=== PATIENT | male | born 1965 | race Caucasian/White ===

== ENCOUNTER 2019-12-10 06:03 | Inpatient (IN) | payer MEDICAID ==
[2019-12-10] MEDS ORDERED: Albuterol 0.083% 2.5 MG/3 ML Neb Soln NEB ONE ×2 (06:06→06:40)
[2019-12-10] MEDS ORDERED: Sodium Chloride 0.9% 10 ML Syringe FLUSH PRN ×2 (06:11→10:37)
[2019-12-10] MEDS ORDERED: methylPREDNISolone Sodium Succinate 125 MG/2 ML SDV IVPUSH ONE (06:12)
--- NOTE | 2019-12-10 06:17 | EDM.PDOC ---
ED HPI GENERAL MEDICAL PROBLEM - General Chief Complaint: Respiratory Problem Stated Complaint: [facility] Time Seen by Provider: 12/10/19 06:05 Source of Information: Reports: Patient, EMS History Limitations: Reports: Other (no old records) - History of Present Illness INITIAL COMMENTS - FREE TEXT/NARRATIVE: 54 yo male smoker is transported this morning to the ER via EMS for SOB/wheezing. A Duoneb and BiPAP was used per EMS en route with some benefit. Comes from the [facility]. Has no provider. No fever. Has been hospitalized in the past for his breathing in [place], [place]. Has had MDI inhalers in the past, but is out of them. Onset: Gradual Onset Date: 12/08/19 Duration: Day(s): (2), Getting Worse Location: Reports: Chest Quality: Reports: Other (no pain) Severity: Severe Improves with: Reports: Medication Worsens with: Reports: Other (time/smoking) Context: Reports: Other (See HPI) Associated Symptoms: Reports: Shortness of Breath. 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) (Duoneb/BiPAP) - Related Data Allergies Allergy/AdvReac Type Severity Reaction Status Date / Time No Known Allergies Allergy Verified 12/10/19 06:14 Home Meds: Home Meds Albuterol [Ventolin HFA] 1 - 2 puff .XX Q4H PRN 12/10/19 [History] ED ROS GENERAL - Review of Systems Review Of Systems: See Below Constitutional: Reports: No Symptoms HEENT: Reports: No Symptoms Respiratory: Reports: Shortness of Breath, Wheezing Cardiovascular: Reports: No Symptoms GI/Abdominal: Reports: No Symptoms : Reports: No Symptoms Musculoskeletal: Reports: No Symptoms Skin: Reports: No Symptoms Neurological: Reports: No Symptoms ED EXAM, GENERAL - Physical Exam Exam: See Below Exam Limited By: No Limitations General Appearance: Alert, WD/WN, Mild Distress Eye Exam: Bilateral Eye: Normal Inspection Ears: Normal External Exam, Normal Canal, Hearing Grossly Normal Ear Exam: Bilateral Ear: Auricle Normal, Canal Normal Nose: Normal Inspection, No Blood Throat/Mouth: Normal Inspection, Normal Lips, Normal Oropharynx, Normal Voice, No Airway Compromise Head: Atraumatic, Normocephalic Neck: Normal Inspection Respiratory/Chest: Respiratory Distress, Decreased Breath Sounds, Wheezing, Retractions. No: No Respiratory Distress, Lungs Clear, Normal Breath Sounds, No Accessory Muscle Use, Rales, Rhonchi Cardiovascular: Regular Rate, Rhythm, No Edema GI/Abdominal: Normal Bowel Sounds, Soft, Non-Tender, No Distention Back Exam: Normal Inspection. No: CVA Tenderness (R), CVA Tenderness (L) Extremities: Normal Inspection, Normal Range of Motion, Non-Tender, No Pedal Edema. No: Pedal Edema Neurological: Alert, Oriented, CN II-XII Intact, Normal Cognition, No Motor/ Sensory Deficits Psychiatric: Normal Affect, Normal Mood Skin Exam: Warm, Dry, Intact, Normal Color, No Rash Course - Vital Signs Text/Narrative:: Dr. Patino called @ 0702h Last Recorded V/S: Last Vital Signs Temp 36.5 C 12/10/19 10:37 Pulse 84 12/10/19 16:00 Resp 20 12/10/19 16:00 BP 127/73 12/10/19 16:00 Pulse Ox 99 12/10/19 16:00 - Orders/Labs/Meds Orders: Medication Orders Acetaminophen (Tylenol) 650 mg PO Q4H PRN PRN Reason: Pain (Mild 1-3)/fever Albuterol (Proventil Neb Soln) 2.5 mg NEB Q2H PRN PRN Reason: Shortness Of Breath/wheezing Albuterol/Ipratropium (Duoneb 3.0-0.5 Mg/3 Ml) 3 ml NEB QIDRT [facility] Last Admin: 12/10/19 14:46 Dose: 3 ml Documented by: Admin: 12/10/19 10:51 Dose: 3 ml Documented by: PAYAL Enoxaparin Sodium (Lovenox) 40 mg SUBCUT Q24H [facility] Last Admin: 12/10/19 11:27 Dose: 40 mg Documented by: DARRIN Sodium Chloride (Normal Saline) 1,000 mls @ 125 mls/hr IV ASDIRECTED [facility] Last Admin: 12/10/19 10:44 Dose: 125 mls/hr Documented by: DARRIN Methylprednisolone Sodium Succinate (Solu-Medrol) 40 mg IVPUSH Q6H [facility] Last Admin: 12/10/19 17:48 Dose: 40 mg Documented by: Admin: 12/10/19 11:30 Dose: 40 mg Documented by: DARRIN Nicotine (Habitrol) 21 mg TRDERM DAILY [facility] Last Admin: 12/10/19 11:28 Dose: 21 mg Documented by: DARRIN Nicotine Polacrilex (Nicorelief) 2 mg CHEW Q1H PRN PRN Reason: Other Ondansetron HCl (Zofran) 4 mg IV Q4H PRN PRN Reason: Nausea/Vomiting Polyethylene Glycol (Miralax) 17 gm PO DAILY PRN PRN Reason: Constipation Sodium Chloride (Saline Flush) 10 ml FLUSH ASDIRECTED PRN PRN Reason: Keep Vein Open Labs: Laboratory Tests 12/10/19 12/10/19 12/10/19 Range/Units 06:10 06:10 06:10 WBC 14.4 H (4.5-11.0) K/uL RBC 4.99 (4.30-5.90) M/uL Hgb 15.2 H (12.0-15.0) g/dL Hct 46.4 (40.0-54.0) % MCV 93 (80-98) fL MCH 31 (27-31) pg MCHC 33 (32-36) % Plt Count 383 (150-400) K/uL Puncture Site R brachial ABG pH 7.341 L (7.350-7.450) ABG pCO2 42.9 H (35.0-42.0) mmHg ABG pO2 141.0 H (75.0-100.0) mmHg ABG HCO3 22.5 (22.0-26.0) mmol/L ABG Total CO2 19.6 L (23.0-27.0) mmol/L ABG O2 Saturation 98.4 H (95.0-98.0) % ABG O2 Content 21.8 (15.0-23.0) %vol ABG Base Excess -2.7 mm/L ABG Hemoglobin 15.9 (13.5-18.0) g/dL ABG Oxyhemoglobin 96.9 % ABG Carboxyhemoglobin 0.8 (0.0-1.6) % ABG Methemoglobin 0.7 % O2 Delivery Device Bipap Oxygen Flow Rate 8.0 L Sodium 139 L (140-148) mmol/L Potassium 4.5 (3.6-5.2) mmol/L Chloride 105 (100-108) mmol/L Carbon Dioxide 24 (21-32) mmol/L Anion Gap 14.5 H (5.0-14.0) mmol/L BUN 13 (7-18) mg/dL Creatinine 0.9 (0.8-1.3) mg/dL Est Cr Clr Drug Dosing 90.13 mL/min Estimated GFR (MDRD) > 60 (>60) Glucose 126 H (74-106) mg/dL Calcium 9.0 (8.5-10.1) mg/dL Meds: Medications Generic Name Dose Route Start Last Admin Trade Name Freq PRN Reason Stop Dose Admin Acetaminophen 650 mg 12/10/19 10:37 Tylenol PO Q4H PRN Pain (Mild 1-3)/fever Albuterol 2.5 mg 12/10/19 10:37 Proventil Neb Soln NEB Q2H PRN Shortness Of Breath/wheezing Albuterol/Ipratropium 3 ml 12/10/19 11:00 12/10/19 14:46 Duoneb 3.0-0.5 Mg/3 Ml NEB 3 ml QIDRT [facility] Administration Enoxaparin Sodium 40 mg 12/10/19 12:00 12/10/19 11:27 Lovenox SUBCUT 40 mg Q24H [facility] Administration Sodium Chloride 1,000 mls @ 125 mls/hr 12/10/19 10:37 12/10/19 10:44 Normal Saline IV 125 mls/hr ASDIRECTED [facility] Administration Methylprednisolone Sodium Succinate 40 mg 12/10/19 12:00 12/10/19 17:48 Solu-Medrol IVPUSH 40 mg Q6H [facility] Administration Nicotine 21 mg 12/10/19 11:00 12/10/19 11:28 Habitrol TRDERM 21 mg DAILY [facility] Administration Nicotine Polacrilex 2 mg 12/10/19 10:37 Nicorelief CHEW Q1H PRN Other Ondansetron HCl 4 mg 12/10/19 10:37 Zofran IV Q4H PRN Nausea/Vomiting Polyethylene Glycol 17 gm 12/10/19 10:37 Miralax PO DAILY PRN Constipation Sodium Chloride 10 ml 12/10/19 10:37 Saline Flush FLUSH ASDIRECTED PRN Keep Vein Open Discontinued Medications Generic Name Dose Route Start Last Admin Trade Name Freq PRN Reason Stop Dose Admin Albuterol 2.5 mg 06/22/20 06:06 12/10/19 06:13 Proventil Neb Soln NEB 12/10/19 06:07 2.5 mg ONETIME ONE Administration Albuterol 2.5 mg 12/10/19 06:40 12/10/19 06:44 Proventil Neb Soln NEB 12/10/19 06:41 2.5 mg ONETIME ONE Administration Methylprednisolone Sodium Succinate 125 mg 12/10/19 06:12 12/10/19 06:16 Solu-Medrol IVPUSH 12/10/19 06:13 125 mg ONETIME ONE Administration Sodium Chloride 10 ml 12/10/19 06:11 12/10/19 06:16 Saline Flush FLUSH 10 ml ASDIRECTED PRN Administration Keep Vein Open - Radiology Interpretation Free Text/Narrative:: CXR-emphysema Departure - Departure Time of Disposition: 08:00 Disposition: Admitted As Inpatient 67 Condition: Fair Clinical Impression: Bronchospasm Emphysema lung Qualifiers: Emphysema type: unspecified Qualified Code(s): J43.9 - Emphysema, unspecified - Discharge Information *PRESCRIPTION DRUG MONITORING PROGRAM REVIEWED*: Not Applicable *COPY OF PRESCRIPTION DRUG MONITORING REPORT IN PATIENT LUCERO: Not Applicable Sepsis Event Note (ED) - Focused Exam Vital Signs: Vital Signs Temp Pulse Resp BP Pulse Ox 12/10/19 09:30 64 20 134/89 98 12/10/19 07:30 87 22 H 135/95 H 99 12/10/19 06:28 58 L 24 H 160/103 H 100 12/10/19 06:04 35.5 C L 75 21 H 157/96 H 100
--- NOTE | 2019-12-10 09:32 | CR ---
CHEST: Portable 12/10/2019 at 634 CLINICAL HISTORY:SOB COMPARISON:None FINDINGS: The lungs are emphysematous. The heart size, pulmonary vascularity and hilar structures are normal. No infiltrate effusion or pneumothorax is seen. IMPRESSION: No acute cardiopulmonary process. The Glass changes
--- NOTE | 2019-12-10 10:10 | PCM.HP.2 ---
H&P History of Present Illness - General Date of Service: 12/10/19 Admit Problem/Dx: Admission Diagnosis/Problem Admission Diagnosis/Problem COPD, Severe chronic obstructive pulmonary disease Source of Information: Patient, Provider, RN Notes Reviewed History Limitations: Reports: No Limitations - History of Present Illness Initial Comments - Free Text/Narative: Mr. Sahu is a 54-year-old gentleman who was admitted through the emergency department with shortness of breath and hypoxia secondary to COPD exacerbation. He reports that he has had a lifelong history of asthma and does use an inhaler intermittently. He has a [id number]-ybio smoking history and smoked up until the day prior to admission. He does find that he has to pace himself somewhat as far as physical activity because of shortness of breath, but is fairly physically active working as a [employer]. He does not use home oxygen. He felt well until 2 days ago and over the past 36 hours has developed progressive shortness of breath. He presented to the emergency department early this morning with increased respiratory rate and hypoxia. He has received nebulizer therapy and is feeling somewhat improved, adequate oxygenation on 1 L of oxygen via nasal cannula. He denies any fevers chills sweats or productive cough. - Related Data Allergies/Adverse Reactions: Allergies Allergy/AdvReac Type Severity Reaction Status Date / Time No Known Allergies Allergy Verified 12/10/19 06:14 Home Medications: Home Meds Albuterol [Ventolin HFA] 1 - 2 puff .XX Q4H PRN 12/10/19 [History] Past Medical History Respiratory History: Reports: Asthma - Past Surgical History GI Surgical History: Reports: Hernia, Inguinal Social & Family History - Tobacco Use Smoking Status *Q: Current Every Day Smoker Years of Tobacco use: 27 Packs/Tins Daily: 1 - Recreational Drug Use Recreational Drug Use: No H&P Review of Systems - Review of Systems: Review Of Systems: See Below General: Reports: No Symptoms HEENT: Reports: No Symptoms Pulmonary: Reports: Shortness of Breath, Wheezing. Denies: Pleuritic Chest Pain, Cough, Sputum, Hemoptysis Cardiovascular: Reports: Dyspnea on Exertion. Denies: Chest Pain, Palpitations, Orthopnea, PND, Edema, Lightheadedness Gastrointestinal: Reports: No Symptoms Genitourinary: Reports: No Symptoms Musculoskeletal: Reports: No Symptoms Skin: Reports: No Symptoms Psychiatric: Reports: No Symptoms Neurological: Reports: No Symptoms Hematologic/Lymphatic: Reports: No Symptoms Immunologic: Reports: No Symptoms Exam - Exam Exam: See Below - Vital Signs Vital Signs: Last Vital Signs Temp 95.9 F L 12/10/19 06:04 Pulse 64 12/10/19 09:30 Resp 20 12/10/19 09:30 BP 134/89 12/10/19 09:30 Pulse Ox 98 12/10/19 09:30 Weight: 148 lb - Exam Quality Assessment: Supplemental Oxygen, DVT Prophylaxis General: Alert, Oriented, Cooperative, Moderate Distress HEENT: Conjunctiva Clear, Hearing Intact, Mucosa Moist & [place], Normal Nasal Septum, Posterior Pharynx Clear, Pupils Equal Neck: Supple, Trachea Midline, +2 Carotid Pulse wo Bruit Lungs: Decreased Breath Sounds, Wheezing. No: Crackles, Rales, Rhonchi Cardiovascular: Regular Rate, Regular Rhythm, Normal S1, Normal S2. No: Systolic Murmur, Diastolic Murmur GI/Abdominal Exam: Soft, Non-Tender, No Organomegaly, No Distention Back Exam: Normal Inspection, Full Range of Motion Extremities: Non-Tender, No Pedal Edema Skin: Warm, Dry, Intact, Other (Lipoma right posterior shoulder) Neurological: Cranial Nerves Intact, Strength Equal Bilateral, Normal Speech, Normal Tone, Sensation Intact. No: Focal Deficit Neuro Extensive - Mental Status: Alert, Oriented x3, Normal Mood/Affect, Normal Cognition, Memory Intact - Patient Data Lab Results Last 24 hrs: Laboratory Results - last 24 hr 12/10/19 12/10/19 12/10/19 Range/Units 06:10 06:10 06:10 WBC 14.4 H (4.5-11.0) K/uL RBC 4.99 (4.30-5.90) M/uL Hgb 15.2 H (12.0-15.0) g/dL Hct 46.4 (40.0-54.0) % MCV 93 (80-98) fL MCH 31 (27-31) pg MCHC 33 (32-36) % Plt Count 383 (150-400) K/uL Puncture Site R brachial ABG pH 7.341 L (7.350-7.450) ABG pCO2 42.9 H (35.0-42.0) mmHg ABG pO2 141.0 H (75.0-100.0) mmHg ABG HCO3 22.5 (22.0-26.0) mmol/L ABG Total CO2 19.6 L (23.0-27.0) mmol/L ABG O2 Saturation 98.4 H (95.0-98.0) % ABG O2 Content 21.8 (15.0-23.0) %vol ABG Base Excess -2.7 mm/L ABG Hemoglobin 15.9 (13.5-18.0) g/dL ABG Oxyhemoglobin 96.9 % ABG Carboxyhemoglobin 0.8 (0.0-1.6) % ABG Methemoglobin 0.7 % O2 Delivery Device Bipap Oxygen Flow Rate 8.0 L Sodium 139 L (140-148) mmol/L Potassium 4.5 (3.6-5.2) mmol/L Chloride 105 (100-108) mmol/L Carbon Dioxide 24 (21-32) mmol/L Anion Gap 14.5 H (5.0-14.0) mmol/L BUN 13 (7-18) mg/dL Creatinine 0.9 (0.8-1.3) mg/dL Est Cr Clr Drug Dosing 90.13 mL/min Estimated GFR (MDRD) > 60 (>60) Glucose 126 H (74-106) mg/dL Calcium 9.0 (8.5-10.1) mg/dL Result Diagrams: 12/10/19 06:10 12/10/19 06:10 Sepsis Event Note - Evaluation Sepsis Screening Result: No Definite Risk - Focused Exam Vital Signs: Vital Signs Temp Pulse Resp BP Pulse Ox 12/10/19 09:30 64 20 134/89 98 12/10/19 07:30 87 22 H 135/95 H 99 12/10/19 06:28 58 L 24 H 160/103 H 100 12/10/19 06:04 95.9 F L 75 21 H 157/96 H 100 Date Exam was Performed: 12/10/19 Time Exam was Performed: 10:03 *Q Meaningful Use (ADM) - VTE Risk Assess *Q Each Risk Factor Represents 1 Point: Age 41 - 59 years, Abnormal Pulmonary Function (COPD) Total Score 1 Point Risk Factors: 2 Each Risk Factor Represents 2 Points: None Total Score 2 Point Risk Factors: 0 Each Risk Factor Represents 3 Points: None Total Score 3 Point Risk Factors: 0 Each Risk Factor Represents 5 Points: None Total Score 5 Point Risk Factors: 0 Venous Thromboembolism Risk Factor Score *Q: 2 Problem List Initiated/Reviewed/Updated: Yes Orders Last 24hrs: Active Orders 24 hr Category Date Time Status Patient Status Manage Transfer [TRANSFER] Routine ADT 12/10/19 09:57 Ordered RT Aerosol Therapy [RC] ASDIRECTED Care 12/10/19 06:06 Active RT Aerosol Therapy [RC] ASDIRECTED Care 12/10/19 06:40 Active Sodium Chloride 0.9% [Saline Flush] Med 12/10/19 06:11 Active 10 ml FLUSH ASDIRECTED PRN Saline Lock Insert [OM.PC] Routine Oth 12/10/19 06:11 Ordered Resuscitation Status Routine Resus Stat 12/10/19 09:59 Ordered Medication Orders Sodium Chloride (Saline Flush) 10 ml FLUSH ASDIRECTED PRN PRN Reason: Keep Vein Open Last Admin: 12/10/19 06:16 Dose: 10 ml Documented by: HALLEY Assessment/Plan Comment:: ASSESSMENT AND PLAN COPD EXACERBATION WITH HYPOXIA-longstanding history of reactive airway disease and 49-[id number]-[id number] smoking history. Shortness of breath over the last 36 hours, no evidence of underlying infection. -Supplemental oxygen as needed -Nebulized albuterol and DuoNebs -Solu-Medrol 40 mg IV every 6 hours -Hold on antibiotic therapy, unless he develops overt evidence of infection. NICOTINE DEPENDENCE -Nicotine patch -Nicotine gum as needed MAINTENANCE ISSUES -DVT prophylaxis; Lovenox 40 mg subcu daily -GI prophylaxis; not indicated -Mont[place] catheter; not indicated -Nutrition; regular diet -Nicotine dependence; nicotine patch and gum CODE STATUS-FULL CODE ADMISSION STATUS-patient will be admitted to inpatient status, expect at least a 2 night hospital stay for evaluation and management of problems as outlined above. At the time of this admission I do not reasonably expected evaluation and management of this problem will require more than a 96 hour hospital stay. DISPOSITION-anticipate discharge to home after the hospital stay. - Mortality Measure Prognosis:: Good
[2019-12-10] MEDS ORDERED: Nicotine Polacrilex 2 MG Gum CHEW PRN (10:37)
[2019-12-10] MEDS ORDERED: Ondansetron 4 MG/2 ML SDV IV PRN (10:37)
[2019-12-10] MEDS ORDERED: Polyethylene Glycol 3350 Powder 17 GM Packet PO PRN (10:37)
[2019-12-10] MEDS: Sodium Chloride 0.9% 1,000 ML IV SCH ×2 (10:44→18:32)
[2019-12-10] MEDS: Albuterol/Ipratropium 3.0-0.5 MG/3 ML Neb Soln NEB SCH ×3 (10:51→20:54)
[2019-12-10] MEDS: Enoxaparin 40 MG/0.4 ML Syringe SUBCUT SCH (11:27)
[2019-12-10] MEDS: Nicotine 21 MG/24 Hr Patch TRDERM SCH (11:28)
[2019-12-10] MEDS: methylPREDNISolone Sodium Succinate 40 MG/1 ML SDV IVPUSH SCH ×2 (11:30→17:48)
[2019-12-11] MEDS: methylPREDNISolone Sodium Succinate 40 MG/1 ML SDV IVPUSH SCH ×4 (00:38→17:09)
[2019-12-11] MEDS: Sodium Chloride 0.9% 1,000 ML IV SCH (02:20)
[2019-12-11] MEDS: Albuterol 0.083% 2.5 MG/3 ML Neb Soln NEB PRN (04:46)
[2019-12-11] MEDS: Albuterol/Ipratropium 3.0-0.5 MG/3 ML Neb Soln NEB SCH ×4 (07:25→20:12)
[2019-12-11] MEDS: Nicotine 21 MG/24 Hr Patch TRDERM SCH (08:56)
--- NOTE | 2019-12-11 10:31 | PCM.PN ---
- General Info Date of Service: 12/11/19 Subjective Update: Mr. Sahu is noted moderate improvement in his shortness of breath since admission. At rest he is much less short of breath and more comfortable. He does desaturate and become short of breath with minimal exertion. He is remained afebrile and hemodynamically stable, no cough or other evidence of underlying infection. Functional Status: Reports: Tolerating Diet, Urinating - Review of Systems General: Reports: No Symptoms Pulmonary: Reports: Shortness of Breath, Wheezing. Denies: Pleuritic Chest Pain, Cough, Sputum, Hemoptysis Cardiovascular: Reports: Dyspnea on Exertion. Denies: Chest Pain, Palpitations, Orthopnea, PND, Edema, Lightheadedness Gastrointestinal: Reports: No Symptoms - Patient Data Vitals - Most Recent: Last Vital Signs Temp 98.2 F 12/11/19 08:00 Pulse 93 12/11/19 10:00 Resp 18 12/11/19 10:00 BP 114/60 12/11/19 10:00 Pulse Ox 92 L 12/11/19 10:00 Weight - Most Recent: 148 lb 0.011 oz I&O - Last 24 Hours: Intake & Output 12/10/19 12/11/19 12/11/19 22:59 06:59 14:59 Intake Total 1269 1348 250 Output Total 450 900 450 Balance 819 448 -200 Med Orders - Current: Current Medications Acetaminophen (Tylenol) 650 mg PO Q4H PRN PRN Reason: Pain (Mild 1-3)/fever Albuterol (Proventil Neb Soln) 2.5 mg NEB Q2H PRN PRN Reason: Shortness Of Breath/wheezing Last Admin: 12/11/19 04:46 Dose: 2.5 mg Documented by: Albuterol/Ipratropium (Duoneb 3.0-0.5 Mg/3 Ml) 3 ml NEB QIDRT [facility] Last Admin: 12/11/19 07:25 Dose: 3 ml Documented by: Enoxaparin Sodium (Lovenox) 40 mg SUBCUT Q24H [facility] Last Admin: 12/10/19 11:27 Dose: 40 mg Documented by: Methylprednisolone Sodium Succinate (Solu-Medrol) 40 mg IVPUSH Q6H [facility] Last Admin: 12/11/19 06:08 Dose: 40 mg Documented by: Nicotine (Habitrol) 21 mg TRDERM DAILY [facility] Last Admin: 12/11/19 08:56 Dose: 21 mg Documented by: Nicotine Polacrilex (Nicorelief) 2 mg CHEW Q1H PRN PRN Reason: Other Ondansetron HCl (Zofran) 4 mg IV Q4H PRN PRN Reason: Nausea/Vomiting Polyethylene Glycol (Miralax) 17 gm PO DAILY PRN PRN Reason: Constipation Sodium Chloride (Saline Flush) 10 ml FLUSH ASDIRECTED PRN PRN Reason: Keep Vein Open Discontinued Medications Albuterol (Proventil Neb Soln) 2.5 mg NEB ONETIME ONE Stop: 12/10/19 06:07 Last Admin: 12/10/19 06:13 Dose: 2.5 mg Documented by: Albuterol (Proventil Neb Soln) 2.5 mg NEB ONETIME ONE Stop: 12/10/19 06:41 Last Admin: 12/10/19 06:44 Dose: 2.5 mg Documented by: Sodium Chloride (Normal Saline) 1,000 mls @ 125 mls/hr IV ASDIRECTED [facility] Last Admin: 12/11/19 02:20 Dose: 125 mls/hr Documented by: Methylprednisolone Sodium Succinate (Solu-Medrol) 125 mg IVPUSH ONETIME ONE Stop: 12/10/19 06:13 Last Admin: 12/10/19 06:16 Dose: 125 mg Documented by: Sodium Chloride (Saline Flush) 10 ml FLUSH ASDIRECTED PRN PRN Reason: Keep Vein Open Last Admin: 12/10/19 06:16 Dose: 10 ml Documented by: - Exam Quality Assessment: DVT Prophylaxis General: Alert, Oriented, Cooperative, Moderate Distress Lungs: Decreased Breath Sounds, Wheezing. No: Crackles, Rales, Rhonchi Cardiovascular: Regular Rate, Regular Rhythm, No Murmurs GI/Abdominal Exam: Soft, Non-Tender, No Organomegaly, No Distention Extremities: Non-Tender, No Pedal Edema Sepsis Event Note - Evaluation Sepsis Screening Result: No Definite Risk - Focused Exam Vital Signs: Vital Signs Temp Pulse Resp BP Pulse Ox Pulse Ox 12/11/19 10:00 93 18 114/60 92 L 12/11/19 08:00 98.2 F 100 20 127/66 94 L 12/11/19 07:25 105 H 95 12/11/19 07:00 96 12/11/19 06:00 81 15 125/63 96 12/11/19 04:00 76 16 112/73 96 12/11/19 02:00 92 16 116/65 91 L 12/11/19 00:00 89 18 125/75 95 Date Exam was Performed: 12/11/19 Time Exam was Performed: 10:29 - Problem List Review Problem List Initiated/Reviewed/Updated: Yes - My Orders Last 24 Hours: My Active Orders 12/10/19 09:59 Resuscitation Status Routine 12/10/19 10:37 Acetaminophen [Tylenol] 650 mg PO Q4H PRN Albuterol [Proventil Neb Soln] 2.5 mg NEB Q2H PRN Nicotine Polacrilex [Nicorelief] 2 mg CHEW Q1H PRN Ondansetron [Zofran] 4 mg IV Q4H PRN Sodium Chloride 0.9% [Saline Flush] 10 ml FLUSH ASDIRECTED PRN polyethylene glycoL 3350 [MiraLAX] 17 gm PO DAILY PRN 12/10/19 10:37 Patient Status [ADT] Routine Ambulate [RC] QID Height and Weight [RC] DAILY Intake and Output [RC] QSHIFT Notify Provider Vital Signs [RC] ASDIRECTED Oxygen Therapy [RC] PRN Peripheral IV Care [RC] Q12H Pulse Oximetry [RC] CONTINUOUS RT Aerosol Therapy [RC] ASDIRECTED Up ad Donya [RC] ASDIRECTED Up to Chair [RC] QID VTE/DVT Education [RC] Per Unit Routine Vital Signs [RC] Q2H Peripheral IV Insertion Adult [OM.PC] Routine 12/10/19 11:00 Albuterol/Ipratropium [DuoNeb 3.0-0.5 MG/3 ML] 3 ml NEB QIDRT Nicotine [Habitrol] 21 mg TRDERM DAILY 12/10/19 12:00 Enoxaparin [Lovenox] 40 mg SUBCUT Q24H methylPREDNISolone Sod Succ [Solu-MEDROL] 40 mg IVPUSH Q6H 12/11/19 10:28 Convert IV to Saline Lock [OM.PC] Routine - Plan Plan:: ASSESSMENT AND PLAN COPD EXACERBATION WITH HYPOXIA-longstanding history of reactive airway disease and 15-dpat-bfmo smoking history. Moderate improvement from admission, still short of breath and hypoxic with activity -Supplemental oxygen as needed -Nebulized albuterol and DuoNebs -Solu-Medrol 40 mg IV every 6 hours -Hold on antibiotic therapy, unless he develops evidence of infection. NICOTINE DEPENDENCE -Nicotine patch -Nicotine gum as needed MAINTENANCE ISSUES -DVT prophylaxis; Lovenox 40 mg subcu daily -GI prophylaxis; not indicated -[place] catheter; not indicated -Nutrition; regular diet -Nicotine dependence; nicotine patch and gum CODE STATUS-FULL CODE ADMISSION STATUS-patient will be admitted to inpatient status, expect at least a 2 night hospital stay for evaluation and management of problems as outlined above. At the time of this admission I do not reasonably expected evaluation and management of this problem will require more than a 96 hour hospital stay. DISPOSITION-anticipate discharge to home after the hospital stay.
[2019-12-11] MEDS: Enoxaparin 40 MG/0.4 ML Syringe SUBCUT SCH (11:32)
[2019-12-12] MEDS: methylPREDNISolone Sodium Succinate 40 MG/1 ML SDV IVPUSH SCH ×4 (01:50→17:27)
[2019-12-12] MEDS: Albuterol 0.083% 2.5 MG/3 ML Neb Soln NEB PRN (05:28)
[2019-12-12] MEDS: Albuterol/Ipratropium 3.0-0.5 MG/3 ML Neb Soln NEB SCH ×4 (07:22→21:14)
[2019-12-12] MEDS: Nicotine 21 MG/24 Hr Patch TRDERM SCH ×2 (09:15→21:25)
--- NOTE | 2019-12-12 12:22 | PCM.PN ---
- General Info Date of Service: 12/12/19 Subjective Update: Mr. Sahu has noted further modest improvement in his shortness of breath over the last 24 hours. Continues to experience a nonproductive cough. Vital signs have remained stable and he has been afebrile. Continues to require supplemental oxygen at 1 L/min via nasal cannula. Functional Status: Reports: Tolerating Diet, Ambulating, Urinating - Review of Systems General: Reports: No Symptoms Pulmonary: Reports: Shortness of Breath, Cough, Wheezing. Denies: Pleuritic Chest Pain, Sputum, Hemoptysis Cardiovascular: Reports: Dyspnea on Exertion. Denies: Chest Pain, Palpitations, Orthopnea, PND, Edema, Lightheadedness Gastrointestinal: Reports: No Symptoms - Patient Data Vitals - Most Recent: Last Vital Signs Temp 97.5 F 12/12/19 11:00 Pulse 90 12/12/19 11:04 Resp 18 12/12/19 11:00 BP 106/52 L 12/12/19 11:00 Pulse Ox 92 L 12/12/19 11:00 Weight - Most Recent: 134 lb 3.2 oz I&O - Last 24 Hours: Intake & Output 12/11/19 12/12/19 12/12/19 22:59 06:59 14:59 Intake Total 240 360 Balance 240 360 Med Orders - Current: Current Medications Acetaminophen (Tylenol) 650 mg PO Q4H PRN PRN Reason: Pain (Mild 1-3)/fever Albuterol (Proventil Neb Soln) 2.5 mg NEB Q2H PRN PRN Reason: Shortness Of Breath/wheezing Last Admin: 12/12/19 05:28 Dose: 2.5 mg Documented by: Albuterol/Ipratropium (Duoneb 3.0-0.5 Mg/3 Ml) 3 ml NEB QIDRT [facility] Last Admin: 12/12/19 11:04 Dose: 3 ml Documented by: Enoxaparin Sodium (Lovenox) 40 mg SUBCUT Q24H [facility] Last Admin: 12/11/19 11:32 Dose: 40 mg Documented by: Methylprednisolone Sodium Succinate (Solu-Medrol) 40 mg IVPUSH Q6H [facility] Last Admin: 12/12/19 05:29 Dose: 40 mg Documented by: Nicotine (Habitrol) 21 mg TRDERM DAILY [facility] Last Admin: 12/12/19 09:15 Dose: 21 mg Documented by: Nicotine Polacrilex (Nicorelief) 2 mg CHEW Q1H PRN PRN Reason: Other Ondansetron HCl (Zofran) 4 mg IV Q4H PRN PRN Reason: Nausea/Vomiting Polyethylene Glycol (Miralax) 17 gm PO DAILY PRN PRN Reason: Constipation Sodium Chloride (Saline Flush) 10 ml FLUSH ASDIRECTED PRN PRN Reason: Keep Vein Open Discontinued Medications Albuterol (Proventil Neb Soln) 2.5 mg NEB ONETIME ONE Stop: 12/10/19 06:07 Last Admin: 12/10/19 06:13 Dose: 2.5 mg Documented by: Albuterol (Proventil Neb Soln) 2.5 mg NEB ONETIME ONE Stop: 12/10/19 06:41 Last Admin: 12/10/19 06:44 Dose: 2.5 mg Documented by: Sodium Chloride (Normal Saline) 1,000 mls @ 125 mls/hr IV ASDIRECTED [facility] Last Admin: 12/11/19 02:20 Dose: 125 mls/hr Documented by: Methylprednisolone Sodium Succinate (Solu-Medrol) 125 mg IVPUSH ONETIME ONE Stop: 12/10/19 06:13 Last Admin: 12/10/19 06:16 Dose: 125 mg Documented by: Sodium Chloride (Saline Flush) 10 ml FLUSH ASDIRECTED PRN PRN Reason: Keep Vein Open Last Admin: 12/10/19 06:16 Dose: 10 ml Documented by: - Exam Quality Assessment: Supplemental Oxygen, DVT Prophylaxis General: Alert, Oriented, Cooperative, Moderate Distress Lungs: Decreased Breath Sounds, Wheezing. No: Crackles, Rales, Rhonchi Cardiovascular: Regular Rate, Regular Rhythm. No: No Murmurs GI/Abdominal Exam: Soft, Non-Tender, No Organomegaly, No Distention Extremities: Non-Tender, No Pedal Edema Sepsis Event Note - Evaluation Sepsis Screening Result: No Definite Risk - Focused Exam Vital Signs: Vital Signs Temp Pulse Resp BP Pulse Ox 12/12/19 11:04 90 12/12/19 11:00 97.5 F 96 18 106/52 L 92 L 12/12/19 07:47 91 L 12/12/19 07:33 96.9 F 97 16 107/63 96 12/12/19 07:26 72 12/12/19 03:00 97.5 F 67 18 121/61 95 12/12/19 01:40 94 L Date Exam was Performed: 12/12/19 Time Exam was Performed: 12:21 - Problem List Review Problem List Initiated/Reviewed/Updated: Yes - Plan Plan:: ASSESSMENT AND PLAN COPD EXACERBATION WITH HYPOXIA-longstanding history of reactive airway disease and [id number] smoking history. Moderate improvement from admission, still short of breath and hypoxic with activity -Supplemental oxygen as needed -Nebulized albuterol and DuoNebs -Solu-Medrol 40 mg IV every 6 hours -Hold on antibiotic therapy, unless he develops evidence of infection. NICOTINE DEPENDENCE -Nicotine patch -Nicotine gum as needed MAINTENANCE ISSUES -DVT prophylaxis; Lovenox 40 mg subcu daily -GI prophylaxis; not indicated -Montgomery catheter; not indicated -Nutrition; regular diet -Nicotine dependence; nicotine patch and gum CODE STATUS-FULL CODE ADMISSION STATUS-patient will be admitted to inpatient status, expect at least a 2 night hospital stay for evaluation and management of problems as outlined above. At the time of this admission I do not reasonably expected evaluation and management of this problem will require more than a 96 hour hospital stay. DISPOSITION-anticipate discharge to home after the hospital stay.
[2019-12-12] MEDS: Enoxaparin 40 MG/0.4 ML Syringe SUBCUT SCH (13:05)
[2019-12-12] MEDS: Acetaminophen 325 MG Tab PO PRN (19:31)
[2019-12-13] MEDS: methylPREDNISolone Sodium Succinate 40 MG/1 ML SDV IVPUSH SCH ×4 (00:33→21:09)
[2019-12-13] MEDS: Albuterol/Ipratropium 3.0-0.5 MG/3 ML Neb Soln NEB SCH ×4 (07:16→20:34)
[2019-12-13] MEDS: Nicotine 21 MG/24 Hr Patch TRDERM SCH (09:22)
[2019-12-13] MEDS: Enoxaparin 40 MG/0.4 ML Syringe SUBCUT SCH (11:24)
[2019-12-13] MEDS: Acetaminophen 325 MG Tab PO PRN ×2 (11:27→20:41)
--- NOTE | 2019-12-13 12:25 | PCM.PN ---
- General Info Date of Service: 12/13/19 Subjective Update: Mr. Sahu has been stable since yesterday, further improvement in shortness of breath although he does get winded with fairly minimal activity. He is now off of supplemental oxygen. Continues to have cough intermittently productive of fairly clear sputum. Functional Status: Reports: Tolerating Diet, Ambulating, Urinating - Review of Systems General: Denies: Fever, Chills Pulmonary: Reports: Shortness of Breath. Denies: Pleuritic Chest Pain, Cough, Sputum, Hemoptysis, Wheezing Cardiovascular: Reports: Dyspnea on Exertion. Denies: Chest Pain, Palpitations, Orthopnea, PND, Edema, Lightheadedness Gastrointestinal: Reports: No Symptoms - Patient Data Vitals - Most Recent: Last Vital Signs Temp 98.2 F 12/13/19 11:29 Pulse 97 12/13/19 11:29 Resp 16 12/13/19 11:29 BP 128/65 12/13/19 11:29 Pulse Ox 93 L 12/13/19 11:29 Weight - Most Recent: 134 lb 3.2 oz I&O - Last 24 Hours: Intake & Output 12/12/19 12/13/19 12/13/19 22:59 06:59 14:59 Intake Total 1200 480 Balance 1200 480 Med Orders - Current: Current Medications Acetaminophen (Tylenol) 650 mg PO Q4H PRN PRN Reason: Pain (Mild 1-3)/fever Last Admin: 12/13/19 11:27 Dose: 650 mg Documented by: Albuterol (Proventil Neb Soln) 2.5 mg NEB Q2H PRN PRN Reason: Shortness Of Breath/wheezing Last Admin: 12/12/19 05:28 Dose: 2.5 mg Documented by: Albuterol/Ipratropium (Duoneb 3.0-0.5 Mg/3 Ml) 3 ml NEB QIDRT [facility] Last Admin: 12/13/19 10:46 Dose: 3 ml Documented by: Enoxaparin Sodium (Lovenox) 40 mg SUBCUT Q24H [facility] Last Admin: 12/13/19 11:24 Dose: 40 mg Documented by: Nicotine (Habitrol) 21 mg TRDERM DAILY [facility] Last Admin: 12/13/19 09:22 Dose: Not Given Documented by: Nicotine Polacrilex (Nicorelief) 2 mg CHEW Q1H PRN PRN Reason: Other Ondansetron HCl (Zofran) 4 mg IV Q4H PRN PRN Reason: Nausea/Vomiting Polyethylene Glycol (Miralax) 17 gm PO DAILY PRN PRN Reason: Constipation Sodium Chloride (Saline Flush) 10 ml FLUSH ASDIRECTED PRN PRN Reason: Keep Vein Open Discontinued Medications Albuterol (Proventil Neb Soln) 2.5 mg NEB ONETIME ONE Stop: 12/10/19 06:07 Last Admin: 12/10/19 06:13 Dose: 2.5 mg Documented by: Albuterol (Proventil Neb Soln) 2.5 mg NEB ONETIME ONE Stop: 12/10/19 06:41 Last Admin: 12/10/19 06:44 Dose: 2.5 mg Documented by: Sodium Chloride (Normal Saline) 1,000 mls @ 125 mls/hr IV ASDIRECTED [facility] Last Admin: 12/11/19 02:20 Dose: 125 mls/hr Documented by: Methylprednisolone Sodium Succinate (Solu-Medrol) 125 mg IVPUSH ONETIME ONE Stop: 12/10/19 06:13 Last Admin: 12/10/19 06:16 Dose: 125 mg Documented by: Methylprednisolone Sodium Succinate (Solu-Medrol) 40 mg IVPUSH Q6H [facility] Last Admin: 12/13/19 11:24 Dose: 40 mg Documented by: Sodium Chloride (Saline Flush) 10 ml FLUSH ASDIRECTED PRN PRN Reason: Keep Vein Open Last Admin: 12/10/19 06:16 Dose: 10 ml Documented by: - Exam Quality Assessment: DVT Prophylaxis General: Alert, Oriented, Cooperative, Mild Distress Lungs: Clear to Auscultation, Normal Respiratory Effort, Decreased Breath Sounds. No: Rales, Rhonchi, Wheezing Cardiovascular: Regular Rate, Regular Rhythm, No Murmurs GI/Abdominal Exam: Soft, Non-Tender, No Organomegaly, No Distention Extremities: Non-Tender, No Pedal Edema Sepsis Event Note - Evaluation Sepsis Screening Result: No Definite Risk - Focused Exam Vital Signs: Vital Signs Temp Pulse Resp BP Pulse Ox 12/13/19 11:29 98.2 F 97 16 128/65 93 L 12/13/19 10:47 81 12/13/19 08:08 97.2 F 92 16 115/53 L 93 L 12/13/19 07:20 91 L 12/13/19 07:17 84 12/13/19 04:09 81 18 93 L 12/13/19 01:00 92 L Date Exam was Performed: 12/13/19 Time Exam was Performed: 12:23 - Problem List Review Problem List Initiated/Reviewed/Updated: Yes - My Orders Last 24 Hours: My Active Orders 12/12/19 15:42 RT Acapella [RESPCARE] Routine 12/13/19 12:30 methylPREDNISolone Sod Succ [Solu-MEDROL] 40 mg IVPUSH Q12H - Plan Plan:: ASSESSMENT AND PLAN COPD EXACERBATION WITH HYPOXIA-longstanding history of reactive airway disease and [id number] smoking history. Moderate improvement from admission, still short of breath and hypoxic with activity. Is now off of supplemental oxygen -Supplemental oxygen as needed -Nebulized albuterol and DuoNebs -Solu-Medrol 40 mg IV every 12 hours -Hold on antibiotic therapy, unless he develops evidence of infection. NICOTINE DEPENDENCE -Nicotine patch -Nicotine gum as needed MAINTENANCE ISSUES -DVT prophylaxis; Lovenox 40 mg subcu daily -GI prophylaxis; not indicated -Montgomery catheter; not indicated -Nutrition; regular diet -Nicotine dependence; nicotine patch and gum CODE STATUS-FULL CODE ADMISSION STATUS-patient will be admitted to inpatient status, expect at least a 2 night hospital stay for evaluation and management of problems as outlined above. At the time of this admission I do not reasonably expected evaluation and management of this problem will require more than a 96 hour hospital stay. DISPOSITION-anticipate discharge to home after the hospital stay.
[2019-12-14] MEDS: Albuterol/Ipratropium 3.0-0.5 MG/3 ML Neb Soln NEB SCH ×2 (07:20→10:57)
[2019-12-14] MEDS: Nicotine 21 MG/24 Hr Patch TRDERM SCH (08:00)
[2019-12-14] MEDS: methylPREDNISolone Sodium Succinate 40 MG/1 ML SDV IVPUSH SCH (09:42)
[2019-12-14] MEDS ORDERED: Albuterol 8 GM Inhaler INH PRN (12:33)
--- NOTE | 2019-12-14 12:44 | PCM.DCSUM1 ---
Discharge Summary - Hospital Course Brief History: Mr. Sahu is a 54-year-old gentleman who was admitted through the emergency department with shortness of breath and hypoxia secondary to COPD exacerbation. - Discharge Data Discharge Date: 12/14/19 Discharge Disposition: Home, Self-Care 01 Condition: Fair - Referral to Home Health Primary Care Physician: PCP None - Discharge Diagnosis/Problem(s) (1) COPD exacerbation SNOMED Code(s): 326478294 ICD Code: J44.1 - CHRONIC OBSTRUCTIVE PULMONARY DISEASE W (ACUTE) EXACERBATION Status: Acute Current Visit: Yes (2) Tobacco use disorder SNOMED Code(s): 795277491 ICD Code: F17.200 - NICOTINE DEPENDENCE, UNSPECIFIED, UNCOMPLICATED Status: Chronic Current Visit: No - Patient Summary/Data Hospital Course: Mr. Sahu is a 54-year-old gentleman who was admitted through the emergency department with shortness of breath and hypoxia secondary to COPD exacerbation. He reports that he has had a lifelong history of asthma and does use an inhaler intermittently. He has a [id number] smoking history and smoked up until the day prior to admission. He does find that he has to pace himself somewhat as far as physical activity because of shortness of breath, but is fairly physically active working as a [employer]. He does not use home oxygen. He felt well until 2 days ago and over the past 36 hours has developed progressive shortness of breath. He presented to the emergency department early this morning with increased respiratory rate and hypoxia. He has received nebulizer therapy and is feeling somewhat improved, adequate oxygenation on 1 L of oxygen via nasal cannula. He denies any fevers chills sweats or productive cough. Initially he was given IV fluids for hydration, as well as ongoing nebulizer therapy scheduled and as needed. He was given Solu-Medrol 40 mg IV every 6 hours. During hospital stay he did develop a cough which was minimally productive and he was felt to have had a probable viral upper respiratory tract infection. He had no significant fevers or purulent sputum. Respiratory status gradually improved through hospitalization and by the time of discharge he was up and active with good oxygenation on room air. He was counseled concerning the importance of nicotine cessation. Activity will be as tolerated and he will resume his usual diet. He will receive an additional 3-day course of oral prednisone. Follow-up appointment will be scheduled with primary care within 1 week. - Patient Instructions Diet: Usual Diet as Tolerated Activity: As Tolerated Other/Special Instructions: Please schedule follow-up appointment with primary care provider within 1 week. - Discharge Plan *PRESCRIPTION DRUG MONITORING PROGRAM REVIEWED*: Not Applicable *COPY OF PRESCRIPTION DRUG MONITORING REPORT IN PATIENT LUCERO: Not Applicable Prescriptions/Med Rec: predniSONE [Prednisone] 40 mg PO DAILY #6 tablet Home Medications: Home Meds Albuterol [Ventolin HFA] 1 - 2 puff .XX Q4H PRN 12/10/19 [History] predniSONE [Prednisone] 40 mg PO DAILY #6 tablet 12/14/19 [Rx] Patient Handouts: Chronic Obstructive Pulmonary Disease, [id number], How to Use a Metered Dose Inhaler Referrals: Lydia Patton MD [Ordering Only Provider] - 12/18/19 3:20 pm (APPOINTMENT AT [facility] - Discharge Summary/Plan Comment DC Time >30 min.: No - Patient Data Vitals - Most Recent: Last Vital Signs Temp 96.7 F L 12/14/19 07:49 Pulse 71 12/14/19 07:49 Resp 18 12/14/19 07:49 BP 107/61 12/14/19 07:49 Pulse Ox 92 L 12/14/19 12:27 Weight - Most Recent: 135 lb 6.4 oz I&O - Last 24 hours: Intake & Output 12/13/19 12/14/19 12/14/19 22:59 06:59 14:59 Intake Total 1440 240 960 Balance 1440 240 960 Med Orders - Current: Current Medications Acetaminophen (Tylenol) 650 mg PO Q4H PRN PRN Reason: Pain (Mild 1-3)/fever Last Admin: 12/13/19 20:41 Dose: 650 mg Documented by: Albuterol (Proventil Neb Soln) 2.5 mg NEB Q2H PRN PRN Reason: Shortness Of Breath/wheezing Last Admin: 12/12/19 05:28 Dose: 2.5 mg Documented by: Albuterol (Ventolin Hfa) 0 gm INH Q4H PRN PRN Reason: Dyspnea Albuterol/Ipratropium (Duoneb 3.0-0.5 Mg/3 Ml) 3 ml NEB QIDRT [facility] Last Admin: 12/14/19 10:57 Dose: 3 ml Documented by: Enoxaparin Sodium (Lovenox) 40 mg SUBCUT Q24H [facility] Last Admin: 12/13/19 11:24 Dose: 40 mg Documented by: Methylprednisolone Sodium Succinate (Solu-Medrol) 40 mg IVPUSH Q12H [facility] Last Admin: 12/14/19 09:42 Dose: 40 mg Documented by: Nicotine (Habitrol) 21 mg TRDERM DAILY [facility] Last Admin: 12/14/19 08:00 Dose: 21 mg Documented by: Nicotine Polacrilex (Nicorelief) 2 mg CHEW Q1H PRN PRN Reason: Other Ondansetron HCl (Zofran) 4 mg IV Q4H PRN PRN Reason: Nausea/Vomiting Polyethylene Glycol (Miralax) 17 gm PO DAILY PRN PRN Reason: Constipation Last Admin: 12/14/19 08:00 Dose: 17 gm Documented by: Sodium Chloride (Saline Flush) 10 ml FLUSH ASDIRECTED PRN PRN Reason: Keep Vein Open Discontinued Medications Albuterol (Proventil Neb Soln) 2.5 mg NEB ONETIME ONE Stop: 12/10/19 06:07 Last Admin: 12/10/19 06:13 Dose: 2.5 mg Documented by: Albuterol (Proventil Neb Soln) 2.5 mg NEB ONETIME ONE Stop: 12/10/19 06:41 Last Admin: 12/10/19 06:44 Dose: 2.5 mg Documented by: Sodium Chloride (Normal Saline) 1,000 mls @ 125 mls/hr IV ASDIRECTED [facility] Last Admin: 12/11/19 02:20 Dose: 125 mls/hr Documented by: Methylprednisolone Sodium Succinate (Solu-Medrol) 125 mg IVPUSH ONETIME ONE Stop: 12/10/19 06:13 Last Admin: 12/10/19 06:16 Dose: 125 mg Documented by: Methylprednisolone Sodium Succinate (Solu-Medrol) 40 mg IVPUSH Q6H [facility] Last Admin: 12/13/19 11:24 Dose: 40 mg Documented by: Sodium Chloride (Saline Flush) 10 ml FLUSH ASDIRECTED PRN PRN Reason: Keep Vein Open Last Admin: 12/10/19 06:16 Dose: 10 ml Documented by: - Exam General: Reports: Alert, Oriented, Cooperative, Mild Distress Lungs: Reports: Clear to Auscultation, Normal Respiratory Effort, Decreased Breath Sounds Cardiovascular: Reports: Regular Rate, Regular Rhythm, No Murmurs GI/Abdominal Exam: Soft, Non-Tender, No Organomegaly, No Distention
== END 2019-12-14 14:15 | disposition home or self-care (01) | DRG 192 ==
LOC: JP.ED 06:03 → JP.ICU 09:57 → JP.MS 12-11 14:15
PROVIDERS: ADMIT Hospitalist; ATTEND Hospitalist
DX: J44.1 Chronic obstructive pulmonary disease with (acute) exacerbation (principal); F17.210 Nicotine dependence, cigarettes, uncomplicated; Z71.6 Tobacco abuse counseling; Z79.51 Long term (current) use of inhaled steroids
CPT/HCPCS: 36415; 36600; 71045; 71045-26; 80048; 82803; 85027; 94640; 94667; 94668; 94762; 96374; 99285-25; A9270-GY; J1650; J2920; J2930; J7030; J7620-GY

== ENCOUNTER 2019-12-23 23:21 | Inpatient (IN) | payer MEDICAID ==
[2019-12-23] MEDS ORDERED: methylPREDNISolone Sodium Succinate 125 MG/2 ML SDV IVPUSH ONE (23:25)
[2019-12-23] MEDS ORDERED: Albuterol/Ipratropium 3.0-0.5 MG/3 ML Neb Soln NEB ONE (23:25)
[2019-12-23] MEDS ORDERED: EPINEPHrine 1 MG/ML SDV SUBCUT ONE (23:38)
[2019-12-23] MEDS ORDERED: Sodium Chloride 0.9% Inhalation Soln 3 ML Neb INH PRN (23:38)
[2019-12-23] MEDS ORDERED: Racepinephrine 2.25% 0.5 ML Neb Soln NEB ONE (23:38)
--- NOTE | 2019-12-23 23:46 | EDM.PDOC ---
ED HPI GENERAL MEDICAL PROBLEM - General Chief Complaint: Asthma Stated Complaint: SOB Time Seen by Provider: 12/23/19 23:25 Source of Information: Reports: Patient History Limitations: Reports: Respiratory Distress - History of Present Illness INITIAL COMMENTS - FREE TEXT/NARRATIVE: 54-year-old male with known emphysema who was recently hospitalized for 5 days with a significant exacerbation of bronchospasm and asthma presents with a second increase in symptoms which started 24 hours ago. He struggled all night last night, his metered-dose inhaler was helping temporarily initially but today it has not been working all day. He is so short of breath he cannot hardly walk. No fevers or chills, no chest pain, no productive cough. He is very similar to what he was prior to being admitted 2 weeks ago. Onset: Gradual Duration: Hour(s): (24 hours) Associated Symptoms: Reports: Cough, Malaise, Shortness of Breath, Weakness - Related Data Allergies Allergy/AdvReac Type Severity Reaction Status Date / Time No Known Allergies Allergy Verified 12/24/19 00:14 Home Meds: Home Meds Albuterol [Ventolin HFA] 1 - 2 puff .XX Q4H PRN 12/10/19 [History] Past Medical History Respiratory History: Reports: Asthma - Infectious Disease History Infectious Disease History: Reports: Chicken Pox - Past Surgical History GI Surgical History: Reports: Hernia, Inguinal Social & Family History - Caffeine Use Caffeine Use: Reports: Coffee ED ROS GENERAL - Review of Systems Review Of Systems: See Below Constitutional: Reports: Chills, Malaise, Weakness. Denies: Fever HEENT: Denies: Throat Pain Respiratory: Reports: Shortness of Breath, Cough. Denies: Sputum Cardiovascular: Denies: Chest Pain GI/Abdominal: Denies: Nausea, Vomiting Neurological: Reports: Weakness. Denies: Headache Psychiatric: Reports: Anxiety ED EXAM, GENERAL - Physical Exam Exam: See Below Exam Limited By: Respiratory Distress General Appearance: Alert, Moderate Distress Head: Atraumatic Neck: Supple, Non-Tender Respiratory/Chest: Other (Marked inspiratory and expiratory wheezes are heard throughout both lungs) Cardiovascular: Regular Rate, Rhythm Extremities: No Pedal Edema Neurological: Alert, Oriented Psychiatric: Anxious Skin Exam: Warm, Dry, Other (A few healing abrasions on the right thigh) Course - Vital Signs Last Recorded V/S: Last Vital Signs Temp 96.5 F L 07/06/20 04:00 Pulse 73 12/24/19 06:00 Resp 16 12/24/19 06:00 BP 130/82 12/24/19 06:00 Pulse Ox 100 12/24/19 06:00 - Orders/Labs/Meds Orders: Active Orders 24 hr Category Date Time Status RT Aerosol Therapy [RC] ASDIRECTED Care 12/23/19 23:25 Active RT Aerosol Therapy [RC] ASDIRECTED Care 12/23/19 23:38 Active RT Aerosol Therapy [RC] ASDIRECTED Care 12/24/19 00:04 Active Chest 1V Frontal [CR] Stat Exams 12/23/19 23:53 Taken Sodium Chloride 0.9% Med 12/23/19 23:38 Active 3 ml INH ASDIRECTED PRN Medication Orders Acetaminophen (Tylenol) 650 mg PO Q4H PRN PRN Reason: Pain (Mild 1-3)/fever Hydrocodone Bitart/Acetaminophen ([place] 325-5 Mg) 1 tab PO Q4H PRN PRN Reason: Pain (moderate 4-6) Albuterol (Proventil Neb Soln) 2.5 mg NEB Q2H PRN PRN Reason: Shortness Of Breath/wheezing Albuterol/Ipratropium (Duoneb 3.0-0.5 Mg/3 Ml) 3 ml NEB Q4H [facility] Last Admin: 12/24/19 03:56 Dose: 3 ml Documented by: LUDWIG Budesonide (Pulmicort) 0.5 mg NEB BIDRT [facility] Enoxaparin Sodium (Lovenox) 30 mg SUBCUT DAILY [facility] Dextrose/Sodium Chloride (Dextrose 5%-1/2 Ns) 1,000 mls @ 125 mls/hr IV ASDIRECTED [facility] Last Admin: 12/24/19 00:38 Dose: 125 mls/hr Documented by: CALEB Promethazine HCl 12.5 mg/ (Sodium Chloride) 50.5 mls @ 200 mls/hr IV Q6H PRN PRN Reason: Nausea/Vomiting Azithromycin 500 mg/ Sodium (Chloride) 250 mls @ 250 mls/hr IV Q24H [facility] Last Admin: 12/24/19 01:40 Dose: 250 mls/hr Documented by: LUDWIG Lorazepam (Ativan) 1 mg IVPUSH Q4H PRN PRN Reason: Anxiety Methylprednisolone Sodium Succinate (Solu-Medrol) 60 mg IVPUSH Q6H [facility] Last Admin: 12/24/19 05:54 Dose: 60 mg Documented by: LUDWIG Morphine Sulfate (Morphine) 2 mg IVPUSH Q2H PRN PRN Reason: Pain (severe 7-10) Ondansetron HCl (Zofran Odt) 4 mg PO Q8H PRN PRN Reason: Nausea able to take PO Ondansetron HCl (Zofran) 4 mg IV Q4H PRN PRN Reason: Nausea/Vomiting Sodium Chloride (Sodium Chloride 0.9%) 3 ml INH ASDIRECTED PRN PRN Reason: mix with racepinephrine neb Last Admin: 12/23/19 23:47 Dose: 3 ml Documented by: CALEB Labs: Laboratory Tests 12/23/19 12/23/19 12/23/19 Range/Units 23:45 23:45 23:45 WBC 14.4 H (4.5-11.0) K/uL RBC 4.36 (4.30-5.90) M/uL Hgb 14.1 (12.0-15.0) g/dL Hct 41.0 (40.0-54.0) % MCV 94 (80-98) fL MCH 32 H (27-31) pg MCHC 34 (32-36) % Plt Count 260 (150-400) K/uL Neut % (Auto) 76 H (36-66) % Lymph % (Auto) 13 L (24-44) % [place] % (Auto) 8 H (2-6) % Eos % (Auto) 3 (2-4) % Baso % (Auto) 0 (0-1) % Puncture Site R brachial ABG pH 7.353 (7.350-7.450) ABG pCO2 45.6 H (35.0-42.0) mmHg ABG pO2 79.1 (75.0-100.0) mmHg ABG HCO3 24.7 (22.0-26.0) mmol/L ABG Total CO2 22.0 L (23.0-27.0) mmol/L ABG O2 Saturation 93.7 L (95.0-98.0) % ABG O2 Content 18.3 (15.0-23.0) %vol ABG Base Excess -0.6 mm/L ABG Hemoglobin 14.1 (13.5-18.0) g/dL ABG Oxyhemoglobin 92.3 % ABG Carboxyhemoglobin 0.7 (0.0-1.6) % ABG Methemoglobin 0.8 % O2 Delivery Device Room air Sodium 141 (140-148) mmol/L Potassium 4.0 (3.6-5.2) mmol/L Chloride 107 (100-108) mmol/L Carbon Dioxide 24 (21-32) mmol/L Anion Gap 9.8 (5.0-14.0) mmol/L BUN 13 (7-18) mg/dL Creatinine 1.0 (0.8-1.3) mg/dL Est Cr Clr Drug Dosing 81.12 mL/min Estimated GFR (MDRD) > 60 (>60) Glucose 116 H (74-106) mg/dL Calcium 8.7 (8.5-10.1) mg/dL Meds: Medications Generic Name Dose Route Start Last Admin Trade Name Freq PRN Reason Stop Dose Admin Acetaminophen 650 mg 12/24/19 00:17 Tylenol PO Q4H PRN Pain (Mild 1-3)/fever Hydrocodone Bitart/Acetaminophen 1 tab 12/24/19 00:17 [place] 325-5 Mg PO Q4H PRN Pain (moderate 4-6) Albuterol 2.5 mg 12/24/19 00:17 Proventil Neb Soln NEB Q2H PRN Shortness Of Breath/wheezing Albuterol/Ipratropium 3 ml 12/24/19 03:30 12/24/19 03:56 Duoneb 3.0-0.5 Mg/3 Ml NEB 3 ml Q4H [facility] Administration Budesonide 0.5 mg 12/24/19 07:00 Pulmicort NEB BIDRT [facility] Enoxaparin Sodium 30 mg 12/24/19 09:00 Lovenox SUBCUT DAILY [facility] Dextrose/Sodium Chloride 1,000 mls @ 125 mls/hr 12/24/19 00:30 12/24/19 00:38 Dextrose 5%-1/2 Ns IV 125 mls/hr ASDIRECTED [facility] Administration Promethazine HCl 12.5 mg/ 50.5 mls @ 200 mls/hr 12/24/19 00:17 Sodium Chloride IV Q6H PRN Nausea/Vomiting Azithromycin 500 mg/ Sodium 250 mls @ 250 mls/hr 12/24/19 01:00 12/24/19 01:40 Chloride IV 250 mls/hr Q24H [facility] Administration Lorazepam 1 mg 12/24/19 01:03 Ativan IVPUSH Q4H PRN Anxiety Methylprednisolone Sodium Succinate 60 mg 12/24/19 06:00 12/24/19 05:54 Solu-Medrol IVPUSH 60 mg Q6H [facility] Administration Morphine Sulfate 2 mg 12/24/19 00:17 Morphine IVPUSH Q2H PRN Pain (severe 7-10) Ondansetron HCl 4 mg 12/24/19 00:17 Zofran Odt PO Q8H PRN Nausea able to take PO Ondansetron HCl 4 mg 12/24/19 00:17 Zofran IV Q4H PRN Nausea/Vomiting Sodium Chloride 3 ml 12/23/19 23:38 12/23/19 23:47 Sodium Chloride 0.9% INH 3 ml ASDIRECTED PRN Administration mix with racepinephrine neb Discontinued Medications Generic Name Dose Route Start Last Admin Trade Name Freq PRN Reason Stop Dose Admin Albuterol 2.5 mg 12/24/19 00:04 12/24/19 00:10 Proventil Neb Soln NEB 12/24/19 00:05 2.5 mg ONETIME ONE Administration Albuterol/Ipratropium 3 ml 12/23/19 23:25 12/23/19 23:28 Duoneb 3.0-0.5 Mg/3 Ml NEB 12/23/19 23:26 3 ml ONETIME ONE Administration Epinephrine HCl 0.3 mg 12/23/19 23:38 12/23/19 23:47 Adrenalin SUBCUT 12/23/19 23:39 0.3 mg ONETIME ONE Administration Magnesium Sulfate 2 gm/ Premix 50 mls @ 12.5 mls/hr 12/24/19 00:17 12/24/19 00:29 IV 12/24/19 04:16 12.5 mls/hr ONETIME ONE Administration Lorazepam 1 mg 12/24/19 00:31 Ativan IVPUSH Q8H PRN Agitation Methylprednisolone Sodium Succinate 125 mg 12/23/19 23:25 12/23/19 23:36 Solu-Medrol IVPUSH 12/23/19 23:26 125 mg ONETIME ONE Administration Racepinephrine 0.5 ml 12/23/19 23:38 12/23/19 23:47 S-2 2.25% NEB 12/23/19 23:39 0.5 ml ONETIME ONE Administration - Re-Assessments/Exams Free Text/Narrative Re-Assessment/Exam: 12/23/19 23:45 Patient was given an urgent DuoNeb, IV was started and he was given 125 mg of Solu-Medrol. He did not have significant initial improvement after the DuoNeb so he was given a racemic epinephrine nebulizer along with 0.3 mg of subcu epine phrine. ABGs, CBC and BMP were obtained. This patient will have to be admitted, Dr. Anne Lloyd was contacted. 12/24/19 00:06 ABGs returned relatively normal, patient had some brief improvement subjectively after the DuoNeb and racemic epinephrine but then started to tire again. He was given another albuterol nebulizer. Dr. Lloyd arrived for admission. Chest x-ray shows significant hyperinflation and COPD changes but no infiltrate. Departure - Departure Time of Disposition: 01:38 Disposition: Admitted As Inpatient 67 Clinical Impression: Asthma with status asthmaticus Qualifiers: Asthma severity: severe Asthma persistence: persistent Qualified Code(s): J45.52 - Severe persistent asthma with status asthmaticus - Discharge Information Sepsis Event Note (ED) - Focused Exam Vital Signs: Vital Signs Temp Pulse Resp BP Pulse Ox 12/23/19 23:51 96.0 F L 83 19 172/111 H 94 L 12/23/19 23:37 96.0 F L 83 18 172/111 H 94 L - My Orders Last 24 Hours: My Active Orders 12/23/19 23:25 RT Aerosol Therapy [RC] ASDIRECTED 12/23/19 23:38 RT Aerosol Therapy [RC] ASDIRECTED Sodium Chloride 0.9% 3 ml INH ASDIRECTED PRN 12/23/19 23:53 Chest 1V Frontal [CR] Stat 12/24/19 00:04 RT Aerosol Therapy [RC] ASDIRECTED - Assessment/Plan Last 24 Hours: My Active Orders 12/23/19 23:25 RT Aerosol Therapy [RC] ASDIRECTED 12/23/19 23:38 RT Aerosol Therapy [RC] ASDIRECTED Sodium Chloride 0.9% 3 ml INH ASDIRECTED PRN 12/23/19 23:53 Chest 1V Frontal [CR] Stat 12/24/19 00:04 RT Aerosol Therapy [RC] ASDIRECTED
[2019-12-24] MEDS ORDERED: Albuterol 0.083% 2.5 MG/3 ML Neb Soln NEB ONE (00:04)
[2019-12-24] MEDS ORDERED: Ondansetron 4 MG/2 ML SDV IV PRN (00:17)
[2019-12-24] MEDS ORDERED: Acetaminophen 325 MG Tab PO PRN (00:17)
[2019-12-24] MEDS ORDERED: Magnesium Sulfate/Water 2 GM in Premix Bag 1 BAG IV ONE (00:17)
[2019-12-24] MEDS ORDERED: Promethazine 12.5 MG in Sodium Chloride 0.9% 50 ML IV PRN (00:17)
[2019-12-24] MEDS ORDERED: Ondansetron 4 MG Tab.DIS PO PRN (00:17)
[2019-12-24] MEDS ORDERED: Albuterol 0.083% 2.5 MG/3 ML Neb Soln NEB PRN (00:17)
[2019-12-24] MEDS ORDERED: Morphine 2 MG/ML SYRINGE IVPUSH PRN (00:17)
[2019-12-24] MEDS ORDERED: Acetaminophen/HYDROcodone 325-5 MG Tab PO PRN (00:17)
[2019-12-24] MEDS ORDERED: Dextrose 5%-0.45% NaCl 1,000 ML IV SCH (00:30)
[2019-12-24] MEDS ORDERED: LORazepam 2 MG/ML SDV IVPUSH PRN ×2 (00:31→01:03)
--- NOTE | 2019-12-24 00:49 | PCM.HP.2 ---
H&P History of Present Illness - General Date of Service: 12/24/19 Admit Problem/Dx: Admission Diagnosis/Problem Admission Diagnosis/Problem Respiratory failure without hypercapnia Source of Information: Patient, Old Records History Limitations: Reports: No Limitations, Respiratory Distress - History of Present Illness Initial Comments - Free Text/Narative: Patient is a 54yo male with PMH of asthma and worsening respiratory status over the last several weeks. Patient was admitted to hospital ~2 weeks ago for same respiratory picture. He says he has no covid exposure. He has not had a fever or chills. 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 Patient does say he has quit smoking since his last admission. He did respond in the ER to some Duo-neb nebulizer and subQ epi treatments. Patient says he did not FU with a primary care physician since his last admission. Onset of Symptoms: Reports: Gradual Symptom Onset Date: 12/23/19 Duration of Symptoms: Reports: Week(s):, Getting Worse Improves with: Reports: Rest Worsens with: Reports: Movement Associated Symptoms: Reports: Cough, Shortness of Breath. Denies: Confusion, Chest Pain, Fever/Chills, Headaches - Related Data Allergies/Adverse Reactions: Allergies Allergy/AdvReac Type Severity Reaction Status Date / Time No Known Allergies Allergy Verified 12/24/19 00:14 Home Medications: Home Meds Albuterol [Ventolin HFA] 1 - 2 puff .XX Q4H PRN 12/10/19 [History] Past Medical History Respiratory History: Reports: Asthma - Infectious Disease History Infectious Disease History: Reports: Chicken Pox - Past Surgical History GI Surgical History: Reports: Hernia, Inguinal Social & Family History - Tobacco Use Smoking Status *Q: Former Smoker Used Tobacco, but Quit: Yes Month/Year Tobacco Last Used: 11/2019 - Caffeine Use Caffeine Use: Reports: Coffee H&P Review of Systems - Review of Systems: Review Of Systems: See Below General: Denies: Fever, Chills HEENT: Reports: No Symptoms Pulmonary: Reports: Shortness of Breath, Wheezing, Cough Cardiovascular: Reports: Dyspnea on Exertion. Denies: Chest Pain, Palpitations, Orthopnea, PND Gastrointestinal: Reports: No Symptoms Genitourinary: Reports: No Symptoms Musculoskeletal: Reports: No Symptoms Skin: Reports: No Symptoms Psychiatric: Reports: No Symptoms Neurological: Reports: No Symptoms Hematologic/Lymphatic: Reports: No Symptoms Immunologic: Reports: No Symptoms Exam - Exam Exam: See Below - Vital Signs Vital Signs: Last Vital Signs Temp 35.6 C L 12/23/19 23:51 Pulse 79 12/24/19 00:31 Resp 20 12/24/19 00:31 BP 172/111 H 12/23/19 23:51 Pulse Ox 99 12/24/19 00:31 Weight: 67.132 kg - Exam General: Alert, Oriented, 4 HEENT: PERRLA, Hearing Intact, Mucosa Moist & [place], Nares Patent, Normal Nasal Septum, Posterior Pharynx Clear, Conjunctiva Clear, EOMI, EACs Clear, TMs Clear Neck: Supple, Trachea Midline Lungs: Wheezing (diffusely/all reyes), Other (significant respiratory effort and accessory muscle use) Cardiovascular: Regular Rate, Regular Rhythm GI/Abdominal Exam: Normal Bowel Sounds, Soft, Non-Tender, No Organomegaly, No Distention, No Abnormal Bruit, No Mass, Pelvis Stable (Male) Exam: Deferred Rectal (Males) Exam: Deferred Back Exam: Normal Inspection, Full Range of Motion, NT Extremities: Normal Inspection, Normal Range of Motion, Non-Tender, No Pedal Edema, Normal Capillary Refill Skin: Warm, Dry, Wound (healing wounds on R thigh, POA) Neurological: Cranial Nerves Intact, Reflexes Equal Bilateral Neuro Extensive - Mental Status: Alert, Oriented x3, Normal Mood/Affect, Normal Cognition Neuro Extensive - Motor, Sensory, Reflexes: CN II-XII Intact Psychiatric: Alert, Normal Affect, Normal Mood - Patient Data Lab Results Last 24 hrs: Laboratory Results - last 24 hr 12/23/19 12/23/19 12/23/19 Range/Units 23:45 23:45 23:45 WBC 14.4 H (4.5-11.0) K/uL RBC 4.36 (4.30-5.90) M/uL Hgb 14.1 (12.0-15.0) g/dL Hct 41.0 (40.0-54.0) % MCV 94 (80-98) fL MCH 32 H (27-31) pg MCHC 34 (32-36) % Plt Count 260 (150-400) K/uL Neut % (Auto) 76 H (36-66) % Lymph % (Auto) 13 L (24-44) % [place] % (Auto) 8 H (2-6) % Eos % (Auto) 3 (2-4) % Baso % (Auto) 0 (0-1) % Puncture Site R brachial ABG pH 7.353 (7.350-7.450) ABG pCO2 45.6 H (35.0-42.0) mmHg ABG pO2 79.1 (75.0-100.0) mmHg ABG HCO3 24.7 (22.0-26.0) mmol/L ABG Total CO2 22.0 L (23.0-27.0) mmol/L ABG O2 Saturation 93.7 L (95.0-98.0) % ABG O2 Content 18.3 (15.0-23.0) %vol ABG Base Excess -0.6 mm/L ABG Hemoglobin 14.1 (13.5-18.0) g/dL ABG Oxyhemoglobin 92.3 % ABG Carboxyhemoglobin 0.7 (0.0-1.6) % ABG Methemoglobin 0.8 % O2 Delivery Device Room air Sodium 141 (140-148) mmol/L Potassium 4.0 (3.6-5.2) mmol/L Chloride 107 (100-108) mmol/L Carbon Dioxide 24 (21-32) mmol/L Anion Gap 9.8 (5.0-14.0) mmol/L BUN 13 (7-18) mg/dL Creatinine 1.0 (0.8-1.3) mg/dL Est Cr Clr Drug Dosing 81.12 mL/min Estimated GFR (MDRD) > 60 (>60) Glucose 116 H (74-106) mg/dL Calcium 8.7 (8.5-10.1) mg/dL Result Diagrams: 12/23/19 23:45 12/23/19 23:45 Sepsis Event Note - Evaluation Sepsis Screening Result: No Definite Risk - Focused Exam Vital Signs: Vital Signs Temp Pulse Resp BP Pulse Ox 12/24/19 00:31 79 20 99 12/23/19 23:51 35.6 C L 83 19 172/111 H 94 L 12/23/19 23:37 35.6 C L 83 18 172/111 H 94 L Date Exam was Performed: 12/24/19 Time Exam was Performed: 00:41 - Problem List (1) COPD exacerbation SNOMED Code(s): 052315906 ICD Code: J44.1 - CHRONIC OBSTRUCTIVE PULMONARY DISEASE W (ACUTE) EXACERBATION Status: Acute Priority: High Current Visit: Yes Onset Date: Unknown Problem Details: Will give patient duonebs, albuterol, inhaled budesonide, azithromycin, IV solumedrol, and possibly bipap and intubation. Patient will be placed in the ICU due to tenuous respiratory status. Patient has considerable accessory muscle use and wheezing and is at high risk for respiratory compromise. Patient will remain NPO at this time until it is clear whether or not he will require intubation or BiPAP. Ativan ordered as PRN for agitation if Bipap is needed. (2) Emphysema lung SNOMED Code(s): 24109931 ICD Code: J43.9 - EMPHYSEMA, UNSPECIFIED Status: Acute Priority: High Current Visit: Yes Problem Details: Will give patient duonebs, albuterol, inh aled budesonide, azithromycin, IV solumedrol, and possibly bipap and intubation. Patient will be placed in the ICU due to tenuous respiratory status. Patient has considerable accessory muscle use and wheezing and is at high risk for respiratory compromise. Patient will remain NPO at this time until it is clear whether or not he will require intubation or BiPAP. Ativan ordered as PRN for agitation if Bipap is needed. Qualifiers: Emphysema type: unspecified Qualified Code(s): J43.9 - Emphysema, unspecified (3) Asthma SNOMED Code(s): 779486388 ICD Code: J45.909 - UNSPECIFIED ASTHMA, UNCOMPLICATED Status: Chronic Priority: High Current Visit: Yes Problem Details: Will give patient duonebs, albuterol, inhaled budesonide, azithromycin, IV solumedrol, and pos sibly bipap and intubation. Patient will be placed in the ICU due to tenuous respiratory status. Patient has considerable accessory muscle use and wheezing and is at high risk for respiratory compromise. Patient will remain NPO at this time until it is clear whether or not he will require intubation or BiPAP. Ativan ordered as PRN for agitation if Bipap is needed. Qualifiers: Asthma severity: severe Asthma persistence: persistent Asthma complication type: with status asthmaticus Qualified Code(s): J45.52 - Severe persistent asthma with status asthmaticus (4) Skin abrasion SNOMED Code(s): 184660663, 747275750, 825778536 ICD Code: T14.8XXA - OTHER INJURY OF UNSPECIFIED BODY REGION, INITIAL ENCOUNTER Status: Acute Current Visit: Yes Problem Details: Patient admitted with wounds on the R leg from a workplace injury that are mostly healed Problem List Initiated/Reviewed/Updated: Yes Orders Last 24hrs: Active Orders 24 hr Category Date Time Status Patient Status Manage Transfer [TRANSFER] Routine ADT 12/24/19 00:34 Ordered Patient Status [ADT] Routine ADT 12/24/19 00:17 Active Cardiac Monitoring [RC] CONTINUOUS Care 12/24/19 00:19 Active Oxygen Therapy [RC] PRN Care 12/24/19 00:17 Active Pulse Oximetry [RC] CONTINUOUS Care 12/24/19 00:19 Active RT Aerosol Therapy [RC] ASDIRECTED Care 12/23/19 23:25 Active RT Aerosol Therapy [RC] ASDIRECTED Care 12/23/19 23:38 Active RT Aerosol Therapy [RC] ASDIRECTED Care 12/24/19 00:04 Active RT Aerosol Therapy [RC] ASDIRECTED Care 12/24/19 00:22 Active RT BiPAP/CPAP [RC] ASDIRECTED Care 12/24/19 00:26 Active VTE/DVT Education [RC] Per Unit Routine Care 12/24/19 00:17 Active Vital Signs [RC] Q4H Care 12/24/19 00:17 Active Nothing per Oral Now Diet [DIET] Diet 12/24/19 Breakfast Active Chest 1V Frontal [CR] Stat Exams 12/23/19 23:53 Taken BLOOD GAS ARTERIAL [BG] Routine Lab 12/24/19 07:00 Ordered CBC WITH AUTO DIFF [HEME] Routine Lab 12/24/19 07:00 Ordered COMPREHENSIVE METABOLIC PN,CMP [CHEM] Routine Lab 12/24/19 07:00 Ordered CORONAVIRUS COVID-19, KATLYN Stat Lab 12/24/19 00:09 Ordered MAGNESIUM [CHEM] Routine Lab 12/24/19 07:00 Ordered Acetaminophen [Tylenol] Med 12/24/19 00:17 Ordered 650 mg PO Q4H PRN Acetaminophen/HYDROcodone [[place] 325-5 MG] Med 12/24/19 00:17 Ordered 1 tab PO Q4H PRN Albuterol [Proventil Neb Soln] Med 12/24/19 00:17 Ordered 2.5 mg NEB Q2H PRN Albuterol/Ipratropium [DuoNeb 3.0-0.5 MG/3 ML] Med 12/24/19 00:30 Ordered 3 ml NEB Q4H Azithromycin [Zithromax] 500 mg Med 12/24/19 00:45 Ordered Sodium Chloride 0.9% [Normal Saline] 250 ml IV Q24H Budesonide [Pulmicort] Med 12/24/19 07:00 Ordered 0.5 mg NEB BIDRT Dextrose 5%-0.45% NaCl [Dextrose 5%-1/2 NS] 1,000 ml Med 12/24/19 00:30 Ordered IV ASDIRECTED Enoxaparin [Lovenox] Med 12/24/19 09:00 Ordered 30 mg SUBCUT DAILY LORazepam [Ativan] Med 12/24/19 00:31 Ordered 1 mg IVPUSH Q8H PRN Magnesium Sulfate/Water [Magnesium Sulfate in Water Med 12/24/19 00:17 Active Premix] 2 gm Premix Bag 1 bag IV ONETIME Morphine Sulfate [Morphine] Med 12/24/19 00:17 Ordered 2 mg IVPUSH Q2H PRN Ondansetron [Zofran ODT] Med 12/24/19 00:17 Ordered 4 mg PO Q8H PRN Ondansetron [Zofran] Med 12/24/19 00:17 Ordered 4 mg IV Q4H PRN Promethazine [Phenergan] 12.5 mg Med 12/24/19 00:17 Ordered Sodium Chloride 0.9% [Normal Saline] 50 ml IV Q6H Sodium Chloride 0.9% Med 12/23/19 23:38 Active 3 ml INH ASDIRECTED PRN methylPREDNISolone Sod Succ [Solu-MEDROL] 60 mg Med 12/24/19 06:30 Ordered Dextrose 5% in Water 100 ml IV Q6H Resuscitation Status Routine Resus Stat 12/24/19 00:17 Ordered Medication Orders Acetaminophen (Tylenol) 650 mg PO Q4H PRN PRN Reason: Pain (Mild 1-3)/fever Hydrocodone Bitart/Acetaminophen ([place] 325-5 Mg) 1 tab PO Q4H PRN PRN Reason: Pain (moderate 4-6) Albuterol (Proventil Neb Soln) 2.5 mg NEB Q2H PRN PRN Reason: Shortness Of Breath/wheezing Albuterol/Ipratropium (Duoneb 3.0-0.5 Mg/3 Ml) 3 ml NEB Q4H [facility] Budesonide (Pulmicort) 0.5 mg NEB BIDRT [facility] Enoxaparin Sodium (Lovenox) 30 mg SUBCUT DAILY [facility] Magnesium Sulfate 2 gm/ Premix 50 mls @ 12.5 mls/hr IV ONETIME ONE Stop: 12/24/19 04:16 Last Admin: 12/24/19 00:29 Dose: 12.5 mls/hr Documented by: CALEB Dextrose/Sodium Chloride (Dextrose 5%-1/2 Ns) 1,000 mls @ 125 mls/hr IV ASDIRECTED [facility] Last Admin: 12/24/19 00:38 Dose: 125 mls/hr Documented by: CALEB Promethazine HCl 12.5 mg/ (Sodium Chloride) 50.5 mls @ 200 mls/hr IV Q6H PRN PRN Reason: Nausea/Vomiting Methylprednisolone Sodium Succinate 60 mg/ Dextrose/Water 100.96 mls @ 200 mls/hr IV Q6H [facility] Azithromycin 500 mg/ Sodium (Chloride) 250 mls @ 250 mls/hr IV Q24H [facility] Lorazepam (Ativan) 1 mg IVPUSH Q8H PRN PRN Reason: Agitation Morphine Sulfate (Morphine) 2 mg IVPUSH Q2H PRN PRN Reason: Pain (severe 7-10) Ondansetron HCl (Zofran Odt) 4 mg PO Q8H PRN PRN Reason: Nausea able to take PO Ondansetron HCl (Zofran) 4 mg IV Q4H PRN PRN Reason: Nausea/Vomiting Sodium Chloride (Sodium Chloride 0.9%) 3 ml INH ASDIRECTED PRN PRN Reason: mix with racepinephrine neb Last Admin: 12/23/19 23:47 Dose: 3 ml Documented by: CALEB - Mortality Measure Prognosis:: Good
[2019-12-24] MEDS ORDERED: Azithromycin 500 MG in Sodium Chloride 0.9% 250 ML IV SCH ×2 (01:00→22:00)
[2019-12-24] MEDS ORDERED: Albuterol/Ipratropium 3.0-0.5 MG/3 ML Neb Soln NEB SCH ×2 (03:30→07:00)
[2019-12-24] MEDS ORDERED: methylPREDNISolone Sodium Succinate 125 MG/2 ML SDV IVPUSH SCH ×2 (06:00→14:00)
[2019-12-24] MEDS ORDERED: methylPREDNISolone Sod Succ 60 MG in Dextrose 5% in Water 100 ML IV SCH ×2 (06:30)
[2019-12-24] MEDS: Budesonide 0.5 MG/2 ML Neb Susp NEB SCH ×2 (07:02→21:20)
[2019-12-24] MEDS: Enoxaparin 40 MG/0.4 ML Syringe SUBCUT SCH (08:37)
[2019-12-24] MEDS ORDERED: cefTRIAXone 2 GM in Sodium Chloride 0.9% 50 ML IV SCH (09:00)
--- NOTE | 2019-12-24 09:34 | PCM.PN ---
- General Info Date of Service: 12/24/19 Subjective Update: No acute events overnight following admission. He did use noninvasive ventilation overnight but is now off all supplemental oxygen. His shortness of breath is much better than last night. He does have some residual wheezing. Heart rate and blood pressure have been stable. No fevers. No significant cough at this time. Functional Status: Reports: Pain Controlled - Review of Systems General: Denies: Fever Pulmonary: Reports: Shortness of Breath - Patient Data Vitals - Most Recent: Last Vital Signs Temp 35.9 C L 12/24/19 08:00 Pulse 86 12/24/19 07:02 Resp 16 12/24/19 08:00 BP 136/81 12/24/19 08:00 Pulse Ox 97 12/24/19 08:00 Weight - Most Recent: 63.548 kg I&O - Last 24 Hours: Intake & Output 12/23/19 12/24/19 12/24/19 22:59 06:59 14:59 Intake Total 846 200 Output Total 500 600 Balance 346 -400 Lab Results Last 24 Hours: Laboratory Results - last 24 hr 12/23/19 12/23/19 12/23/19 Range/Units 23:45 23:45 23:45 WBC 14.4 H (4.5-11.0) K/uL RBC 4.36 (4.30-5.90) M/uL Hgb 14.1 (12.0-15.0) g/dL Hct 41.0 (40.0-54.0) % MCV 94 (80-98) fL MCH 32 H (27-31) pg MCHC 34 (32-36) % Plt Count 260 (150-400) K/uL Neut % (Auto) 76 H (36-66) % Lymph % (Auto) 13 L (24-44) % [place] % (Auto) 8 H (2-6) % Eos % (Auto) 3 (2-4) % Baso % (Auto) 0 (0-1) % Puncture Site R brachial ABG pH 7.353 (7.350-7.450) ABG pCO2 45.6 H (35.0-42.0) mmHg ABG pO2 79.1 (75.0-100.0) mmHg ABG HCO3 24.7 (22.0-26.0) mmol/L ABG Total CO2 22.0 L (23.0-27.0) mmol/L ABG O2 Saturation 93.7 L (95.0-98.0) % ABG O2 Content 18.3 (15.0-23.0) %vol ABG Base Excess -0.6 mm/L ABG Hemoglobin 14.1 (13.5-18.0) g/dL ABG Oxyhemoglobin 92.3 % ABG Carboxyhemoglobin 0.7 (0.0-1.6) % ABG Methemoglobin 0.8 % O2 Delivery Device Room air Oxygen Flow Rate L Sodium 141 (140-148) mmol/L Potassium 4.0 (3.6-5.2) mmol/L Chloride 107 (100-108) mmol/L Carbon Dioxide 24 (21-32) mmol/L Anion Gap 9.8 (5.0-14.0) mmol/L BUN 13 (7-18) mg/dL Creatinine 1.0 (0.8-1.3) mg/dL Est Cr Clr Drug Dosing 81.12 mL/min Estimated GFR (MDRD) > 60 (>60) Glucose 116 H (74-106) mg/dL Calcium 8.7 (8.5-10.1) mg/dL Magnesium (1.8-2.4) mg/dL Total Bilirubin (0.2-1.0) mg/dL AST (15-37) U/L ALT (12-78) U/L Alkaline Phosphatase (46-116) U/L C-Reactive Protein (0.0-0.3) mg/dL Total Protein (6.4-8.2) g/dL Albumin (3.4-5.0) g/dL Globulin (2.3-3.5) g/dL Albumin/Globulin Ratio (1.2-2.2) Procalcitonin ng/mL SARS Virus RNA (PCR) (NEGATIVE) 12/24/19 12/24/19 12/24/19 Range/Units 01:15 06:48 06:48 WBC 18.5 H (4.5-11.0) K/uL RBC 4.10 L (4.30-5.90) M/uL Hgb 12.9 (12.0-15.0) g/dL Hct 38.5 L (40.0-54.0) % MCV 94 (80-98) fL MCH 32 H (27-31) pg MCHC 34 (32-36) % Plt Count 332 (150-400) K/uL Neut % (Auto) 98 H (36-66) % Lymph % (Auto) 2 L (24-44) % [place] % (Auto) 0 L (2-6) % Eos % (Auto) 0 L (2-4) % Baso % (Auto) 0 (0-1) % Puncture Site R brachial ABG pH 7.373 (7.350-7.450) ABG pCO2 38.4 (35.0-42.0) mmHg ABG pO2 125.0 H (75.0-100.0) mmHg ABG HCO3 21.9 L (22.0-26.0) mmol/L ABG Total CO2 19.6 L (23.0-27.0) mmol/L ABG O2 Saturation 98.4 H (95.0-98.0) % ABG O2 Content 18.1 (15.0-23.0) %vol ABG Base Excess -2.5 mm/L ABG Hemoglobin 13.2 L (13.5-18.0) g/dL ABG Oxyhemoglobin 96.9 % ABG Carboxyhemoglobin 0.6 (0.0-1.6) % ABG Methemoglobin 0.9 % O2 Delivery Device Bipap Oxygen Flow Rate L Sodium (140-148) mmol/L Potassium (3.6-5.2) mmol/L Chloride (100-108) mmol/L Carbon Dioxide (21-32) mmol/L Anion Gap (5.0-14.0) mmol/L BUN (7-18) mg/dL Creatinine (0.8-1.3) mg/dL Est Cr Clr Drug Dosing mL/min Estimated GFR (MDRD) (>60) Glucose (74-106) mg/dL Calcium (8.5-10.1) mg/dL Magnesium (1.8-2.4) mg/dL Total Bilirubin (0.2-1.0) mg/dL AST (15-37) U/L ALT (12-78) U/L Alkaline Phosphatase (46-116) U/L C-Reactive Protein (0.0-0.3) mg/dL Total Protein (6.4-8.2) g/dL Albumin (3.4-5.0) g/dL Globulin (2.3-3.5) g/dL Albumin/Globulin Ratio (1.2-2.2) Procalcitonin ng/mL SARS Virus RNA (PCR) Negative (NEGATIVE) 12/24/19 12/24/19 12/24/19 Range/Units 06:48 07:00 07:00 WBC (4.5-11.0) K/uL RBC (4.30-5.90) M/uL Hgb (12.0-15.0) g/dL Hct (40.0-54.0) % MCV (80-98) fL MCH (27-31) pg MCHC (32-36) % Plt Count (150-400) K/uL Neut % (Auto) (36-66) % Lymph % (Auto) (24-44) % [place] % (Auto) (2-6) % Eos % (Auto) (2-4) % Baso % (Auto) (0-1) % Puncture Site ABG pH (7.350-7.450) ABG pCO2 (35.0-42.0) mmHg ABG pO2 (75.0-100.0) mmHg ABG HCO3 (22.0-26.0) mmol/L ABG Total CO2 (23.0-27.0) mmol/L ABG O2 Saturation (95.0-98.0) % ABG O2 Content (15.0-23.0) %vol ABG Base Excess mm/L ABG Hemoglobin (13.5-18.0) g/dL ABG Oxyhemoglobin % ABG Carboxyhemoglobin (0.0-1.6) % ABG Methemoglobin % O2 Delivery Device Oxygen Flow Rate L Sodium 138 L (140-148) mmol/L Potassium 3.8 (3.6-5.2) mmol/L Chloride 105 (100-108) mmol/L Carbon Dioxide 21 (21-32) mmol/L Anion Gap 15.8 H (5.0-14.0) mmol/L BUN 11 (7-18) mg/dL Creatinine 1.0 (0.8-1.3) mg/dL Est Cr Clr Drug Dosing 76.79 mL/min Estimated GFR (MDRD) > 60 (>60) Glucose 204 H (74-106) mg/dL Calcium 8.7 (8.5-10.1) mg/dL Magnesium 2.0 (1.8-2.4) mg/dL Total Bilirubin 0.4 (0.2-1.0) mg/dL AST 20 (15-37) U/L ALT 39 (12-78) U/L Alkaline Phosphatase 55 (46-116) U/L C-Reactive Protein < 0.05 (0.0-0.3) mg/dL Total Protein 7.1 (6.4-8.2) g/dL Albumin 3.1 L (3.4-5.0) g/dL Globulin 4.0 H (2.3-3.5) g/dL Albumin/Globulin Ratio 0.8 L (1.2-2.2) Procalcitonin < 0.05 ng/mL SARS Virus RNA (PCR) (NEGATIVE) Med Orders - Current: Current Medications Acetaminophen (Tylenol) 650 mg PO Q4H PRN PRN Reason: Pain (Mild 1-3)/fever Hydrocodone Bitart/Acetaminophen ([place] 325-5 Mg) 1 tab PO Q4H PRN PRN Reason: Pain (moderate 4-6) Albuterol (Proventil Neb Soln) 2.5 mg NEB Q2H PRN PRN Reason: Shortness Of Breath/wheezing Albuterol/Ipratropium (Duoneb 3.0-0.5 Mg/3 Ml) 3 ml NEB QIDRT PENDING SALE TO [facility] Budesonide (Pulmicort) 0.5 mg NEB BIDRT PENDING SALE TO [facility] Last Admin: 12/24/19 07:02 Dose: 0.5 mg Documented by: Enoxaparin Sodium (Lovenox) 40 mg SUBCUT DAILY [facility]ENDING S[facility] TO [facility] Last Admin: 12/24/19 08:37 Dose: 40 mg Documented by: Dextrose/Sodium Chloride (Dextrose 5%-1/2 Ns) 1,000 mls @ 125 mls/hr IV ASDIRECTED PENDING SALE TO [facility] Last Admin: 12/24/19 00:38 Dose: 125 mls/hr Documented by: Promethazine HCl 12.5 mg/ (Sodium Chloride) 50.5 mls @ 200 mls/hr IV Q6H PRN PRN Reason: Nausea/Vomiting Lorazepam (Ativan) 1 mg IVPUSH Q4H PRN PRN Reason: Anxiety Morphine Sulfate (Morphine) 2 mg IVPUSH Q2H PRN PRN Reason: Pain (severe 7-10) Ondansetron HCl (Zofran Odt) 4 mg PO Q8H PRN PRN Reason: Nausea able to take PO Ondansetron HCl (Zofran) 4 mg IV Q4H PRN PRN Reason: Nausea/Vomiting Prednisone (Prednisone) 20 mg PO BIDAC UGO Discontinued Medications Albuterol (Proventil Neb Soln) 2.5 mg NEB ONETIME ONE Stop: 12/24/19 00:05 Last Admin: 12/24/19 00:10 Dose: 2.5 mg Documented by: Albuterol/Ipratropium (Duoneb 3.0-0.5 Mg/3 Ml) 3 ml NEB ONETIME ONE Stop: 12/23/19 23:26 Last Admin: 12/23/19 23:28 Dose: 3 ml Documented by: Albuterol/Ipratropium (Duoneb 3.0-0.5 Mg/3 Ml) 3 ml NEB Q4H [facility]END[facility] SALE TO [facility] Last Admin: 12/24/19 03:56 Dose: 3 ml Documented by: Albuterol/Ipratropium (Duoneb 3.0-0.5 Mg/3 Ml) 3 ml NEB Q4H [facility]END[facility] S[facility] TO [facility] Last Admin: 12/24/19 07:02 Dose: 3 ml Documented by: Azithromycin (Zithromax) 500 mg PO BEDTIME PENDING SALE TO [facility] Epinephrine HCl (Adrenalin) 0.3 mg SUBCUT ONETIME ONE Stop: 12/23/19 23:39 Last Admin: 12/23/19 23:47 Dose: 0.3 mg Documented by: Magnesium Sulfate 2 gm/ Premix 50 mls @ 12.5 mls/hr IV ONETIME ONE Stop: 12/24/19 04:16 Last Admin: 12/24/19 00:29 Dose: 12.5 mls/hr Documented by: Azithromycin 500 mg/ Sodium (Chloride) 250 mls @ 250 mls/hr IV Q24H [facility]END[facility] SALE TO [facility] Last Admin: 12/24/19 01:40 Dose: 250 mls/hr Documented by: Azithromycin 500 mg/ Sodium (Chloride) 250 mls @ 250 mls/hr IV Q24H [facility]ENDING SALE TO [facility] Ceftriaxone Sodium 2 gm/ (Sodium Chloride) 50 mls @ 100 mls/hr IV Q24H [facility]END[facility] TO [facility] Last Admin: 12/24/19 08:37 Dose: 100 mls/hr Documented by: Lorazepam (Ativan) 1 mg IVPUSH Q8H PRN PRN Reason: Agitation Methylprednisolone Sodium Succinate (Solu-Medrol) 125 mg IVPUSH ONETIME ONE Stop: 12/23/19 23:26 Last Admin: 12/23/19 23:36 Dose: 125 mg Documented by: Methylprednisolone Sodium Succinate (Solu-Medrol) 60 mg IVPUSH Q6H [facility] Last Admin: 12/24/19 05:54 Dose: 60 mg Documented by: Methylprednisolone Sodium Succinate (Solu-Medrol) 62.5 mg IVPUSH Q8H [facility] Racepinephrine (S-2 2.25%) 0.5 ml NEB ONETIME ONE Stop: 12/23/19 23:39 Last Admin: 12/23/19 23:47 Dose: 0.5 ml Documented by: Sodium Chloride (Sodium Chloride 0.9%) 3 ml INH ASDIRECTED PRN PRN Reason: mix with racepinephrine neb Last Admin: 12/23/19 23:47 Dose: 3 ml Documented by: - Exam Quality Assessment: No: Supplemental Oxygen General: Alert, Oriented, Cooperative, No Acute Distress Lungs: Normal Respiratory Effort, Wheezing (mild inspiratory and expiratory ) Cardiovascular: Regular Rate, Regular Rhythm GI/Abdominal Exam: Soft, No Distention Extremities: No Pedal Edema Psy/Mental Status: Alert, Normal Affect Sepsis Event Note - Evaluation Sepsis Screening Result: No Definite Risk - Focused Exam Vital Signs: Vital Signs Temp Pulse Resp BP Pulse Ox 12/24/19 08:00 35.9 C L 16 136/81 97 12/24/19 07:02 86 12/24/19 06:00 73 16 130/82 100 12/24/19 04:00 35.8 C L 16 140/94 H 100 12/24/19 02:00 20 137/92 H 99 12/24/19 01:30 35.8 C L 24 H 132/82 99 12/24/19 00:31 79 20 99 12/23/19 23:51 35.6 C L 83 19 172/111 H 94 L 12/23/19 23:37 35.6 C L 83 18 172/111 H 94 L Date Exam was Performed: 12/24/19 Time Exam was Performed: 13:25 - Problem List Review Problem List Initiated/Reviewed/Updated: Yes - My Orders Last 24 Hours: My Active Orders 12/24/19 08:35 Antiembolic Devices [RC] .Routine SCD [Sequential Compression Device] [OM.PC] Routine 12/24/19 11:00 Albuterol/Ipratropium [DuoNeb 3.0-0.5 MG/3 ML] 3 ml NEB QIDRT 12/24/19 16:30 predniSONE 20 mg PO BIDAC - Plan Plan:: ASSESSMENT AND PLAN - Asthma with acute exacerbation-recent hospital stay for similar. CRP and procalcitonin are undetectable so I suspect this is more environmental than infectious. Improving with current therapies. -Scheduled and as needed nebulizers -Transition steroids to prednisone -Discontinue antibiotics -Supplement oxygen as needed -Consider controller medication Tobacco dependence-fairly recent history of smoking with long history of tobacco use. He is currently abstaining. -Encourage ongoing abstinence Maintenance issues - - DVT prophylaxis -mechanical - GI prophylaxis -not indicated - Nutrition -regular Disposition -I would anticipate discharge home after the hospital stay Michele Patino M.D.
[2019-12-24] MEDS: Albuterol/Ipratropium 3.0-0.5 MG/3 ML Neb Soln NEB SCH ×3 (10:50→21:20)
[2019-12-24] MEDS: predniSONE 20 MG Tab PO SCH (17:34)
[2019-12-24] MEDS ORDERED: Azithromycin 250 MG Tab PO SCH (21:00)
[2019-12-25] MEDS: Albuterol/Ipratropium 3.0-0.5 MG/3 ML Neb Soln NEB SCH ×3 (06:58→14:30)
[2019-12-25] MEDS: Budesonide 0.5 MG/2 ML Neb Susp NEB SCH (06:58)
[2019-12-25] MEDS: Enoxaparin 40 MG/0.4 ML Syringe SUBCUT SCH (09:33)
--- NOTE | 2019-12-25 09:46 | PCM.DCSUM1 ---
Discharge Summary - Hospital Course Brief History: 54-year-old male with history of tobacco dependence currently abstaining and longstanding asthma who presented with acute onset of shortness of breath with dyspnea. He was admitted for management of an asthma exacerbation. Diagnosis: Stroke: No - Discharge Data Discharge Date: 12/25/19 Discharge Disposition: Home, Self-Care 01 Condition: Good - Referral to Home Health Primary Care Physician: PCP None - Patient Summary/Data Hospital Course: Raul presented to the emergency room with fairly acute onset shortness of breath and wheezing. Work-up in the emergency room revealed hypoxic respiratory failure secondary to a recurrent exacerbation of his asthma. He improved only slightly with therapy provided in the emergency room. He was admitted to the intensive care unit and did require noninvasive ventilation overnight following admission. He initially received antibiotics as well as IV steroids. The morning after admission he was doing a fair amount better with only some residual wheezing. His CRP and procalcitonin were undetectable so I discontinued antibiotics. I suspect that he had an environmental trigger for his exacerbation. We continued the steroids but did transition them to prednisone the day after admission. He has remained stable. There is no ongoing wheezing. No fevers. No significant sputum production. He feels much better at this time. He was interested in having a nebulizer at home since the metered-dose inhaler did not provide significant benefit for his significant shortness of breath that prompted the hospital presentation. Fortunately he has continued to abstain from cigarettes since his last hospital admission. He will be following up with a primary care provider in the near future. He did receive a prescription for both albuterol nebulizers as well as prednisone to finish his 5-day burst. - Patient Instructions Diet: Regular Diet as Tolerated Activity: As Tolerated Driving: May Drive Today Showering/Bathing: May Shower Notify Provider of: Fever Other/Special Instructions: 1. You were in the hospital for management of an acute exacerbation of asthma that I suspect was caused by an environmental irritant. There is no evidence for bacterial infection at this time. Your condition has been improving with cares provided in the hospital. I do recommend that you continue to take steroids for the next 3 1/2 days after hospital discharge. Please take prednisone 20 mg twice daily breakfast and supper for 7 doses. Your first dose will be due this evening. 2. I have included a prescription for both albuterol nebulizer solution and a nebulizer machine. You should use the nebulizer 4 times daily as needed for shortness of breath/wheezing. 3. Please follow-up as scheduled with Dr. Anne Lloyd - Discharge Plan *PRESCRIPTION DRUG MONITORING PROGRAM REVIEWED*: Not Applicable *COPY OF PRESCRIPTION DRUG MONITORING REPORT IN PATIENT LUCERO: Not Applicable Prescriptions/Med Rec: predniSONE 20 mg PO BIDMEALS #7 tablet Albuterol [Proventil Neb Soln] 2.5 mg NEB QID PRN #120 neb PRN Reason: Shortness Of Breath/wheezing Home Medications: Home Meds Albuterol [Ventolin HFA] 1 - 2 puff .XX Q4H PRN 12/10/19 [History] Albuterol [Proventil Neb Soln] 2.5 mg NEB QID PRN #120 neb 12/25/19 [Rx] predniSONE 20 mg PO BIDMEALS #7 tablet 12/25/19 [Rx] Oxygen Therapy Mode: Room Air Patient Handouts: Albuterol inhalation aerosol, Asthma Attack Prevention, Adult Referrals: Anne Lloyd DO [Physician] - 01/02/20 1:40 pm (Please arrive 15 minutes early to register for your appointment. ) - Discharge Summary/Plan Comment DC Time >30 min.: No - Patient Data Vitals - Most Recent: Last Vital Signs Temp 36.2 C 12/25/19 08:00 Pulse 71 12/25/19 08:00 Resp 16 12/25/19 06:00 BP 112/67 12/25/19 06:00 Pulse Ox 97 12/25/19 06:00 Weight - Most Recent: 63.548 kg I&O - Last 24 hours: Intake & Output 12/24/19 12/25/19 12/25/19 22:59 06:59 14:59 Intake Total 200 Output Total 850 Balance -650 Med Orders - Current: Current Medications Acetaminophen (Tylenol) 650 mg PO Q4H PRN PRN Reason: Pain (Mild 1-3)/fever Hydrocodone Bitart/Acetaminophen ([place] 325-5 Mg) 1 tab PO Q4H PRN PRN Reason: Pain (moderate 4-6) Albuterol (Proventil Neb Soln) 2.5 mg NEB Q2H PRN PRN Reason: Shortness Of Breath/wheezing Albuterol/Ipratropium (Duoneb 3.0-0.5 Mg/3 Ml) 3 ml NEB QIDRT [facility] Last Admin: 12/25/19 06:58 Dose: 3 ml Documented by: Budesonide (Pulmicort) 0.5 mg NEB BIDRT [facility] Last Admin: 12/25/19 06:58 Dose: 0.5 mg Documented by: Enoxaparin Sodium (Lovenox) 40 mg SUBCUT DAILY [facility] Last Admin: 12/25/19 09:33 Dose: Not Given Documented by: Promethazine HCl 12.5 mg/ (Sodium Chloride) 50.5 mls @ 200 mls/hr IV Q6H PRN PRN Reason: Nausea/Vomiting Lorazepam (Ativan) 1 mg IVPUSH Q4H PRN PRN Reason: Anxiety Morphine Sulfate (Morphine) 2 mg IVPUSH Q2H PRN PRN Reason: Pain (severe 7-10) Ondansetron HCl (Zofran Odt) 4 mg PO Q8H PRN PRN Reason: Nausea able to take PO Ondansetron HCl (Zofran) 4 mg IV Q4H PRN PRN Reason: Nausea/Vomiting Prednisone (Prednisone) 20 mg PO BIDMEALS [facility] Last Admin: 12/24/19 17:34 Dose: 20 mg Documented by: Discontinued Medications Albuterol (Proventil Neb Soln) 2.5 mg NEB ONETIME ONE Stop: 12/24/19 00:05 Last Admin: 12/24/19 00:10 Dose: 2.5 mg Documented by: Albuterol/Ipratropium (Duoneb 3.0-0.5 Mg/3 Ml) 3 ml NEB ONETIME ONE Stop: 12/23/19 23:26 Last Admin: 12/23/19 23:28 Dose: 3 ml Documented by: Albuterol/Ipratropium (Duoneb 3.0-0.5 Mg/3 Ml) 3 ml NEB Q4H [facility] Last Admin: 12/24/19 03:56 Dose: 3 ml Documented by: Albuterol/Ipratropium (Duoneb 3.0-0.5 Mg/3 Ml) 3 ml NEB Q4H [facility] Last Admin: 12/24/19 07:02 Dose: 3 ml Documented by: Azithromycin (Zithromax) 500 mg PO BEDTIME [facility] Epinephrine HCl (Adrenalin) 0.3 mg SUBCUT ONETIME ONE Stop: 12/23/19 23:39 Last Admin: 12/23/19 23:47 Dose: 0.3 mg Documented by: Magnesium Sulfate 2 gm/ Premix 50 mls @ 12.5 mls/hr IV ONETIME ONE Stop: 12/24/19 04:16 Last Admin: 12/24/19 00:29 Dose: 12.5 mls/hr Documented by: Dextrose/Sodium Chloride (Dextrose 5%-1/2 Ns) 1,000 mls @ 125 mls/hr IV ASDIRECTED [facility] Last Admin: 12/24/19 00:38 Dose: 125 mls/hr Documented by: Azithromycin 500 mg/ Sodium (Chloride) 250 mls @ 250 mls/hr IV Q24H [facility] Last Admin: 12/24/19 01:40 Dose: 250 mls/hr Documented by: Azithromycin 500 mg/ Sodium (Chloride) 250 mls @ 250 mls/hr IV Q24H [facility] Ceftriaxone Sodium 2 gm/ (Sodium Chloride) 50 mls @ 100 mls/hr IV Q24H [facility] Last Admin: 12/24/19 08:37 Dose: 100 mls/hr Documented by: Lorazepam (Ativan) 1 mg IVPUSH Q8H PRN PRN Reason: Agitation Methylprednisolone Sodium Succinate (Solu-Medrol) 125 mg IVPUSH ONETIME ONE Stop: 12/23/19 23:26 Last Admin: 12/23/19 23:36 Dose: 125 mg Documented by: Methylprednisolone Sodium Succinate (Solu-Medrol) 60 mg IVPUSH Q6H [facility] Last Admin: 12/24/19 05:54 Dose: 60 mg Documented by: Methylprednisolone Sodium Succinate (Solu-Medrol) 62.5 mg IVPUSH Q8H [facility] Racepinephrine (S-2 2.25%) 0.5 ml NEB ONETIME ONE Stop: 12/23/19 23:39 Last Admin: 12/23/19 23:47 Dose: 0.5 ml Documented by: Sodium Chloride (Sodium Chloride 0.9%) 3 ml INH ASDIRECTED PRN PRN Reason: mix with racepinephrine neb Last Admin: 12/23/19 23:47 Dose: 3 ml Documented by:
[2019-12-25] MEDS: predniSONE 20 MG Tab PO SCH (09:50)
--- NOTE | 2019-12-25 09:51 | CR ---
CHEST: Portable 12/24/2019 at 12:04 AM CLINICAL HISTORY:SOB COMPARISON:November 2019 FINDINGS: Lungs are hyperaerated. No infiltrate effusion or pneumothorax is seen. Impression: Emphysematous changes No acute cardio pelvic process.
== END 2019-12-25 16:56 | disposition home or self-care (01) | DRG 203 ==
LOC: JP.ED 23:21 → JP.ICU 12-24 00:17
PROVIDERS: ADMIT Family Medicine; ATTEND Internal Medicine
PROC: 5A09357 Assistance with Respiratory Ventilation, Less than 24 Consecutive Hours, Continuous Positive Airway Pressure (ICD-10-PCS; principal; 2019-12-24)
DX: J45.52 Severe persistent asthma with status asthmaticus (principal); J43.9 Emphysema, unspecified; Z20.828 Contact with and (suspected) exposure to other viral communicable diseases; Z87.891 Personal history of nicotine dependence
CPT/HCPCS: 36415; 36600; 71045; 71045-26; 80048; 80053; 82803; 83735; 84145; 85025; 86140; 94640; 94660; 96372; 96374; 96375; 99232; 99238; 99284; 99285-25; J0171; J0456; J0696; J1650; J2930; J3475; J7042; J7050; J7512; J7620-GY; U0002